=== PATIENT | male | born 1940 | race Caucasian/White ===

== ENCOUNTER 2017-08-02 10:03 | Outpatient (CLI) | payer MEDICARE ==
[~2017-08-02] VITALS: Ht 175.3 cm; Wt 97.7 kg
--- NOTE | ~2017-08-02 | HEMODYNAMI ---
PATIENT:ALMA SORIA JR MEDICAL RECORD: [id number] : 36 LOCATION:[facility] ADMISSION DATE: 08/02/17 Generatedon:08/08/201710:30 Patient name: ALMA SORIA Patient #: [id number] SSN: D OB: 1940 Date of study: 08/02/2017 Page: Of Hemodynamic Procedure Report Patient Data Patient Demographics Procedure consent was obtained First Name: ALMA Gender: Male Last Name: YANG Suffix: Jr Harrison Initial: JOHN : 1940 Patient #: [id number] Age: 76 year(s) Race: Unknown Additional ID: [id number] Contact details Address: [address] [place] [address] State: [place] City: [place] Zip code: [address] Past Medical History Allergies: No known allergies Admission Admission Data Admission Date: 08/02/2017 Admission Time: 10:03 Height (in.): 5.9 BSA: 0.36 (m2) Height (cm.): 14.99 BMI: 4403.02 (kg/m2) Weight (lbs.): 218 Weight (kg.): 98.88 Lab Results Lab Result Date: 08/02/2017 Lab Result Time: 0:00 Biochemistry Name Units Result Min Max BUN mg/dl 20 --(----)*- 7 18 Creatinine mg/dl 0.9 --(-*--)-- 0.6 1.3 CBC Name Units Result Min Max Hemoglobin g/dl 13.7 --(*---)-- 13.5 17.5 Procedure Procedure Types Cath Procedure Diagnostic Procedure [facility] w/Coronaries PCI Procedure Coronary Stent Coronary Stent Initial Coronary Stent Additional Miscellaneous Procedures Moderate Sedation up to 45 minutes Procedure Description Procedure Date Procedure Date: 08/02/2017 Procedure Start Time: 13:55 Procedure End Time: 14:29 Procedure Staff Name Function Praful Alvarez RN Nurse Josiah Neff MD Performing Physician Washington Luna RT Monitor Reena Smith RT Scrub Layne Boland RT Monitor Procedure Data Cath Procedure Fluoroscopy Diagnostic fluoroscopy Total fluoroscopy Time: 14 time: 14 min min Diagnostic fluoroscopy Total fluoroscopy dose: dose: 02198.4 mGy 71517.4 mGy Contrast Material Contrast Material Type Amount (ml) Isovue 300 156 Entry Location Entry Primary Successful Side Size Upsize Upsize Entry Closure Succes sful Closure Location (Fr) 1 (Fr) 2 (Fr) Remarks Device Remarks Femoral Right 5 Fr 6 Fr Exoseal artery Short Estimated blood loss: 10 ml Diagnostic catheters Device Type Used For End Catheter Placement MULTIPACK Pigtail 5 Fr Procedure catheter MULTIPACK JL 4.0 5Fr Procedure catheter DIAGNOSTIC JL 6 5Fr Procedure catheter ([id number]) DIAGNOSTIC JL 5 5Fr Procedure catheter ([id number]) MULTIPACK 3DRC 5Fr Procedure catheter Procedure Complications No complications Procedure Medications Medication Administration Route Dosage Oxygen NC 2 l/min Lidocaine 2% added to field 20 Heparin Flush Bag added to field 2 bags (1000units/500ml NS) 0.9% NaCl I.V. 100 ml/hr Versed I.V. 1 mg Fentanyl I.V. 50 mcg Heparin Bolus I.V. 4000 units Hemodynamics Rest BSA: 0.36 (m2) HGB: 13.7 (g/dl) O2 Consumption: Estimated: 40.81 (ml/min) O2 Con sumption indexed: Estimated:113.36 (ml/min/m) Heart Rate: 67 (bpm) Snapshots Pre Cath Intra NCS Post Cath Vital Signs Time Heart Resp SPO2 etCO2 NIBP (mmHg) Rhythm Pain Sedation Rate (ipm) (%) (mmHg) Status Level (bpm) 13:45:17 70 18 97 0 168/90(129) NSR 0 (11) 10(A) , No pain 13:49:51 66 20 96 27.1 165/85(143) NSR 0 (11) 10(A) , No pain 13:54:18 65 20 96 15.8 150/75(131) NSR 0 (11) 9(A) , No pain 13:58:46 65 18 95 26.3 158/80(132) NSR 0 (11) 9(A) , No pain 14:03:19 63 13 95 0 169/78(132) NSR 0 (11) 9(A) , No pain 14:08:46 66 17 95 25.6 154/75(137) NSR 0 (11) 9(A) , No pain 14:13:15 71 19 93 27.1 153/73(123) NSR 0 (11) 9(A) , No pain 14:17:41 69 18 93 26.3 148/86(134) NSR 0 (11) 9(A) , No pain 14:22:11 66 18 97 0 162/74(134) NSR 0 (11) 9(A) , No pain 14:26:35 73 25 96 0.7 160/87(140) NSR 0 (11) 10(A) , No pain Medications Time Medication Route Dose Verified Delivered Reason Notes Effectiveness by by 13:49:58 Oxygen NC 2 Josiah Barronie used for l/min Tawanda Alvarez RN procedure 13:50:06 Lidocaine 2% added 20ml Josiah Josiah for local to vial Tawanda Neff MD anesthetic field 13:50:12 Heparin Flush added 2 Josiah Josiah used for Bag to bags Tawadna Neff MD procedure (1000units/500ml field NS) 13:50:20 0.9% NaCl I.V. 100 Josiah Basilio Per physician ml/hr Tawanda Alvarez RN 13:50:31 Versed I.V. 1 mg Josiah Basilio for sedation Tawanda Alvarez RN 13:50:37 Fentanyl I.V. 50 Josiah Barronie for sedation mcg Tawanda Alvarez RN 14:06:03 Heparin Bolus I.V. 4000 Josiah Basilio for verifi ed units Tawanda Alvarez RN anticoagulation with dr neff Procedure Log Time Note 13:34:23 Praful Alvarez RN sent for patient. Start room use. 13:34:25 Time tracking: Regular hours 13:34:29 Plan of Care:Hemodynamics will remain stable., Cardiac rhythm will remain stable., Comfort level will be maintained., Respiratory function will remain adequate., Patient/ family verbilizes understanding of procedure., Procedure tolerated without complication., Recovers from procedure without complications.. 13:34:49 Patient Height : 5.9 inches 13:34:53 Patient Weight : 218 lbs 13:35:11 Patient allergic to No known allergies 13:37:05 Signed procedure consent form obtained from patient. 13:37:24 Lab Result : Hemoglobin 13.7 g/dl 13:37:24 Lab Result : Creatinine 0.9 mg/dl 13:37:24 Lab Result : BUN 20 mg/dl 13:37:28 Lab results completed and on chart. 13:38:43 Patient received from Pre/Post Procedure Room to CCL 3 Alert and oriented. Tansferred to table in Supine position. 13:38:44 Warm blankets applied, and stef hugger turned on for patient comfort. 13:38:45 Correct patient and procedure confirmed by team. 13:38:47 ECG and BP/O2 sat monitors applied to patient. 13:43:54 Vital chart was started 13:44:17 H&P Date Dictated: 07/29/2017 Within 30 days and on chart., H&P Addendum completed by physician on day of procedure. (MUST COMPLETE FOR ALL OUTPATIENTS). 13:44:55 Baseline sample Acquired. 13:46:10 Rhythm: sinus rhythm 13:46:34 Pre-procedure instructions explained to patient. 13:46:35 Pre-op teaching completed and patient verbalized understanding. 13:46:37 Family in patients room. 13:46:38 Patient NPO since Midnight. 13:46:51 Is the patient allergic to Iodine/contrast media? No. 13:46:52 Is patient on blood thinner?Yes 13:46:54 ACC The patient was administered the following blood thiners within the last 24 hours: ACCPlavix 13:46:57 Patient diabetic? No. 13:47:00 Previous problem with sedation/anesthesia? No ? 13:47:01 Snore? Yes 13:47:02 Deviated septum? No 13:47:02 Sleep apnea? No 13:47:03 Opens mouth fully? Yes 13:47:04 Sticks out tongue? Yes 13:47:05 Airway obstruction? No ? 13:47:08 Dentures? Yes In tight 13:47:12 Pre procedure: right dorsailis pedis pulse 2+ Normal; easily identifiable; not easily obliterated 13:47:13 Patient pain scale 0/10 ?. 13:47:35 IV patent on arrival in right forearm with 0.9% NaCl at [facility]. 13:47:39 Right groin area was prepped with chlora-prep and draped in sterile fashion 13:47:40 Sharps counted by scrub and verified by R.N. 13:47:40 Alarms reviewed by R. N. 13:47:42 Use device set Femoral Dx 13:47:45 ACIST Syringe (46766) opened to sterile field. 13:47:46 Medline Cath Pack ([id number]) opened to sterile field. 13:47:46 Bag Decanter (2002S) opened to sterile field. 13:47:48 ACIST Manifold (84294) opened to sterile field. 13:47:48 ACIST Hand Control (96287) opened to sterile field. 13:47:49 Tegaderm 4 x 4 (1626W) opened to sterile field. 13:47:51 PERCUTANEOUS ENTRY 19GA needle opened to sterile field. 13:47:52 DIAGNOSTIC WIRE .035 260cm J wire (487669) opened to sterile field. 13:47:53 SHEATH 5FR [place] (QPE340) opened to sterile field. 13:47:55 DIAGNOSTIC Multipack 5Fr catheter set (IA7029) opened to sterile field. 13:49:16 Baseline sample Acquired. 13:49:26 Physician arrived 13:49:27 Final Timeout: patient, procedure, and site verified with staff and physician. All members of the team are in agreement. 13:49:27 --------ALL STOP TIME OUT------ 13:49:29 Right groin site verified by team. 13:49:32 Physical assessment completed. ASA score P 2 - A patient with mild systemic disease as per Josiah Neff MD. 13:49:35 Sedation plan: IV Moderate Sedation Medication:Versed, Fentanyl 13:49:58 Oxygen 2 l/min NC was administered by Praful Alvarez RN; used for procedure; 13:50:06 Lidocaine 2% 20ml vial added to field was administered by Josiah Neff MD; for local anesthetic; 13:50:12 Heparin Flush Bag (1000units/500ml NS) 2 bags added to field was administered by Josiah Neff MD; used for procedure; 13:50:20 0.9% NaCl 100 ml/hr I.V. was administered by Praful Alvarez RN; Per physician; 13:50:31 Versed 1 mg I.V. was administered by Parful Alvarez RN; for sedation; 13:50:37 Fentanyl 50 mcg I.V. was administered by Praful Alvarez RN; for sedation; 13:51:46 Zero performed for pressure channel P1 13:55:46 Procedure started. 13:55:47 Full Disclosure recording started 13:55:51 Local anesthetic to right femoral artery with Lidocaine 2% by Josiah Neff MD.INITIAL ACCESS ONLY 13:56:03 A 5 Fr sheath was inserted into the Right Femoral artery 13:56:28 A MULTIPACK Pigtail 5 Fr catheter was advanced over the wire and used for Procedure. 13:58:37 catheter removed, unable to cross valve. 13:58:44 A MULTIPACK JL 4.0 5Fr catheter was advanced over the wire and used for Procedure. 13:59:24 Catheter removed. unable to cannulate vessel. 13:59:48 A DIAGNOSTIC JL 6 5Fr catheter ([id number]) was advanced over the wire and used for Procedure. 13:59:55 Catheter removed. unable to cannulate vessel. 14:00:01 A DIAGNOSTIC JL 5 5Fr catheter (702778M) was advanced over the wire and used for Procedure. 14:01:07 LCA angiography performed. 14:02:17 SHEATH 6FR [place] (GQH156) opened to sterile field. 14:02:18 INFLATOR Merit BasixCompak (OC3912) opened to sterile field. 14:02:25 Catheter exchanged over wire. 14:02:29 A MULTIPACK 3DRC 5Fr catheter was advanced over the wire and used for Procedure. 14:02:37 EXOSEAL 6Fr (EX600) opened to sterile field. 14:03:18 CHOICE PT Extra Support 182cm wire ([id number]) opened to sterile field. 14:05:14 Catheter removed. 14:05:21 Sheath upsized to a 6 Fr Short. 14:06:03 Heparin Bolus 4000 units I.V. was administered by Praful Alvarez RN; for anticoagulation; verified with dr neff 14:06:41 GUIDE 6FR Q 4.5 catheter ([id number]) opened to sterile field. 14:06:50 6 Fr Q 4.5 guide catheter was inserted over the wire 14:06:54 choice pt wire advanced. 14:08:27 Wire removed. 14:08:39 GRAPHIX 300cm 0.014 guide wire ([id number]) opened to sterile field. 14:08:47 graphix wire advanced. 14:08:51 Wire advanced across lesion. 14:09:20 Inflation Number: 1 A GREY OTW 3.5 x 12 stent ([id number]) was prepped and advanced across the Prox LAD. The stent was deployed at 15 JUAN CARLOS for 0:10 (min:sec). 14:09:32 Inflation number: 2 The stent balloon was then re-inflated across the Prox LAD to 17 JUAN CARLOS for 0:10 (min:sec). 14:10:36 Wire redirected to cx. 14:13:45 Wire removed. damaged. 14:13:53 WHISPER 300cm guide wire ([id number]) opened to sterile field. 14:13:57 whisper wire advanced. 14:20:22 Wire advanced across lesion. 14:22:10 Inflation Number: 1 A GREY OTW 2.5 x 18 stent ([id number]) was prepped and advanced across the 1st Ob Jovita. The stent was deployed at 13 JUAN CARLOS for 0:10 (min:sec). 14:23:20 Stent catheter was removed intact over wire. 14:23:21 Guide catheter removed. 14:23:21 Wire removed. 14:24:09 Sheath removed intact; hemostasis achieved with Exoseal to the Right Femoral artery. 14:24:12 Procedure ended.(Physican Out) 14:25:24 Fluoroscopy time 14.00 minutes. 14:25:50 Fluoroscopy dose: 12476.4 mGy 14:25:50 08/08/17 1029 Fluoro Dose incorrect. (See Below) Scounts RT(R) 14:25:50 Flurop Dose total: 63767.4 14:25:56 Contrast amount:Isovue 300 156ml. 14:25:59 Sharps counted by scrub and verified by R.N. 14:26:01 Insertion/operative site no bleeding no hematoma. 14:26:04 Post-op/insertion site Right Femoral artery dressed using a 4 x 4 and Tegaderm. 14:26:08 Post right femoral artery:stable, soft, clean and dry 14:26:09 Post Procedure Pulses reassessed and unchanged 14:26:11 Post-procedure physical assessment completed. ASA score P 2 - A patient with mild systemic disease as per Josiah Neff MD. 14:26:15 Post procedure rhythm: unchanged. 14:26:25 Estimated blood loss: 10 ml 14:26:26 Post procedure instruction explained to patient.Patient verbalizes understanding. 14:26:27 Patient needs reinforcement of post procedure teaching. 14:26:41 Procedure type changed to Cath procedure, Diagnostic procedure, LHC, LHC w/Coronaries, PCI procedure, Coronary Stent, Coronary Stent Initial, Coronary Stent Additional, Miscellaneous Procedures, Moderate Sedation up to 45 minutes 14:29:40 Procedure and supply charges have been captured, reviewed, submitted and are correct. 14::42 Procedure Complication : No complications 14::44 See physician's report for complete and final results. 14:29:44 Vital chart was stopped 14:29:48 Report given to Pre/Post Procedure Room. 14:29:50 Patient transfered to Pre/Post Procedure Room with Stretcher. 14:29:52 Full Disclosure recording stopped 14:29:52 Procedure ended. 14:30:31 End room use (Document Last) 10:28:40 Late Entry: Fluoro dose 1115.40mgy. Scounts RT(R) Intervention Summary Intervention Notes Time ActionType Lesion and Equipment Action# Pressure Duration Attributes Used 14:09:20 Place stent Prox LAD GREY OTW 3.5 1 15 00:10 x 12 stent ([id number]) 14:09:32 Reinflate Prox LAD GREY OTW 3.5 2 17 00:10 stent x 12 stent balloon ([id number]) 14:22:10 Place stent 1st Ob Jovita GREY OTW 2.5 1 13 00:10 x 18 stent ([id number]) Device Usage Item Name Manufacture Quantity Catalog Number [facility] Lot# / Charge Number Stock Stock Serial# Code ACIST Syringe Acist 1 66093 272005 349967 697968 20 (16161) Medical Systems Inc Bag Decanter Microtek 1 500914 07542 943682 5 () Medical Inc. Medline Cath Cardinal 1 [id number] 521876 66072 023106 5 Pack Health ([id number]) ACIST Hand Acist 1 13930 921076 855393 592703 5 Control Medical (86249) Systems Inc ACIST Acist 1 77549 942542 488024 034424 5 Manifold Medical (93668) Systems Inc Tegaderm 4 x 3M 1 1626W 003683 765606 583048 5 4 (1626W) PERCUTANEOUS [place] Medical 1 P04113 071979 592771 5 ENTRY 19GA needle DIAGNOSTIC [address] Thee 1 250336 670706 228696 499418 30 WIRE .035 260cm J wire (920376) SHEATH 5FR Terumo 1 EXZ656 180378 391257 742444 40 [place] (YPT603) DIAGNOSTIC Cardinal 1 PJ1272 047499 17896 983839 30 Multipack 5Fr Health catheter set (TK3315) MULTIPACK Cardinal 1 358133 5 Pigtail 5 Fr Health catheter MULTIPACK JL Cardinal 1 816736 5 4.0 5Fr Health catheter DIAGNOSTIC JL Cardinal 1 [id number] 762036 247298 022991 5 6 5Fr Health catheter (646884U) DIAGNOSTIC JL Cardinal 1 [id number] 063903 921024 960598 5 5 5Fr Health catheter (870831S) SHEATH 6FR Terumo 1 RFS975 852405 114265 517081 40 [place] (RAC600) INFLATOR [facility] 1 HB2179 677685 237625 565604 15 [facility] BasixCompak (GP1875) MULTIPACK Cardinal 1 066197 5 3DRC 5Fr Health catheter EXOSEAL 6Fr Cardinal 1 EX600 554112 087075 166040 10 (EX600) Health CHOICE PT Warner 1 [id number] 396017 870392 878081 5 Extra Support Scientific 182cm wire (8206211D9) GUIDE 6FR Q Warner 1 [id number] 464699 476959 440592 1 4.5 catheter Scientific (924082247) GRAPHIX 300cm Warner 1 [id number] 968816 803044 111674 5 0.014 guide Scientific wire (0603998M3) GREY OTW 3.5 Medtronic 1 [id number] 681460 1170251 171202 5 [id number] x 12 stent ([id number]) WHISPER 300cm [place] 1 [id number] 509458 327610 949840 5 guide wire Vascular (8535070BK) GREY OTW 2.5 Medtronic 1 [id number] 190789 96220 347745 5 [id number] x 18 stent ([id number]) Signature Audit [place] Stage Time Signature Unsigned Intra-Procedure 08/02/2017 Washington Tillman Counts 2:31:46 PM RT(R) RT(R) 08/08/2017 10:27:56 AM Intra-Procedure 08/08/2017 Layne 10:30:25 AM Counts RT(R) Signatures Monitor : Washington Luna RT Signature : Date : Time : Monitor : Layne Signature : Counts RT Date : Time : [address] [place] [address]
--- NOTE | ~2017-08-02 | OP ---
PATIENT NAME: ALMA SORIA JR MEDICAL RECORD: [id number] :38 LOCATION:D.CAT ADMISSION DATE: SURGEON: ANGIE PARKS MD DATE OF OPERATION: 08/02/2017 PROCEDURES: 1. PTCA stent LAD. 2. PTCA stent left circumflex. 3. Left heart catheterization. 4. Selective coronary angiography. INDICATION: Angina, coronary artery disease, and cardiomyopathy. PROCEDURE IN DETAIL: After informed consent was obtained and after a detailed explanation of risks, benefits as well as alternative therapies, the patient elected to proceed with angiogram and angioplasty. The right femoral area was prepped and draped in normal sterile fashion. The right femoral artery was cannulated via modified Seldinger technique with placement of a 6-Khmer sheath. All catheters exchanged through this sheath. FINDINGS: Left ventriculogram not performed secondary to inability to cross the valve. SELECTIVE CORONARY ANGIOGRAPHY: 1. Left main is with no significant angiographic disease. 2. Left anterior descending has 80% stenosis that is in-stent restenosis proximally, otherwise only mild irregularities. 3. Left circumflex has 80% stenosis in the mid vessel, otherwise only moderate irregularities. 4. The right coronary has previously placed stents, these are widely patent with no significant restenosis. No disease elsewise. PTCA STENT OF THE LAD AND CIRCUMFLEX: The LAD was addressed with a 3.5 x 12 and the circumflex with a 2.5 x 18, both Ander stents. Result was 0% residual stenosis. OVERALL IMPRESSION: Successful percutaneous transluminal coronary angioplasty stent of the left anterior descending and circumflex, both going from 80% initial stenosis to 0% residual. TRANSINT:[id number] Voice Confirmation ID: [id number] DOCUMENT ID: [id number] ANGIE PARKS MD at 1759 CC: [id number] DICTATION DATE: 08/02/17 1431 NUCLEAR REACTOR OPERATOR: 08/02/17 1455 [facility] CLI 08/02/[address] [address]
[2017-08-02] MEDS ORDERED: PLAVIX75 MG PO (11:19)
[2017-08-02] MEDS ORDERED: FUROSEMIDE40 MG PO (11:19)
[2017-08-02] MEDS ORDERED: COREG 3.1253.125 MG PO (11:19)
[2017-08-02] MEDS ORDERED: K-TAB10 MEQ PO (11:20)
[2017-08-02] MEDS ORDERED: BAYER CHEWABLE81 MG PO (11:20)
[2017-08-02] MEDS ORDERED: COZAAR100 MG PO (11:20)
[2017-08-02 11:40] VITALS: BP 171/79; Ht 175.3 cm; Wt 97.7 kg
[2017-08-02 11:47] LABS: BASOPHILS 0.4 % (0-2); EOSINOPHILS 2.8 % (0-7); HEMATOCRIT 41.5 % (42.0-54.0); HEMOGLOBIN 13.7 g/dL (13.5-17.5); IMMATURE GRANULOCYTES 0.4 % (0-5); LYMPHOCYTES 19.1 % (15-50); MCH 30.9 pg (26.0-34.0); MCV 93.5 fL (80.0-100.0); MEAN PLATELET VOLUME 10.1 fL (7.4-10.4); MONOCYTES 9.5 % (2-11); NEUTROPHILS 67.8 % (40-80); PLATELET COUNT 101 10x3/uL (130-400); RBC 4.44 10x6/uL (4.20-6.10); RDW 14.7 % (11.5-14.5); WBC 4.7 10x3/uL (4.8-10.8)
[2017-08-02 12:02] LABS: CALC OSMOLALITY 291 mosm/kg (275-300); CARBON DIOXIDE 29.5 mmol/L (21.0-32.0); CHLORIDE - SERUM 106 mmol/L (98-107); CREATININE - SERUM 0.9 mg/dL (0.6-1.3); GLUCOSE 105 mg/dL (74-106); SODIUM 145 mmol/L (136-145); UREA NITROGEN 20 mg/dL (7-18); eGFR NON AFRICAN AMERICAN 87 mL/min (90-120)
== END 2017-08-02 18:25 | disposition home or self-care (01) ==
LOC: D.CATH 10:03
PROVIDERS: Internal Medicine Interventional Cardiology
DX: I25.10 Atherosclerotic heart disease of native coronary artery without angina pectoris (principal); R55 Syncope and collapse; I42.9 Cardiomyopathy, unspecified; Z01.812 Encounter for preprocedural laboratory examination
CPT/HCPCS: 93458; C9600 ×2

== ENCOUNTER → 2017-09-11 16:27 | Outpatient (CLI) | payer MEDICARE ==
[2017-08-02 11:40] VITALS: BMI 31.8
[~2017-09-11 16:27] MED LIST: BAYER CHEWABLE81 MG PO; COREG 3.1253.125 MG PO; COZAAR100 MG PO; FUROSEMIDE40 MG PO; K-TAB10 MEQ PO; PLAVIX75 MG PO
[2017-09-11 18:55] LABS: CALC OSMOLALITY 286 mosm/kg (275-300); CARBON DIOXIDE 27.5 mmol/L (21.0-32.0); CHLORIDE - SERUM 104 mmol/L (98-107); CREATININE - SERUM 0.9 mg/dL (0.6-1.3); GLUCOSE 88 mg/dL (74-106); POTASSIUM - SERUM 3.8 mmol/L (3.5-5.1); SODIUM 143 mmol/L (136-145); UREA NITROGEN 21 mg/dL (7-18); eGFR NON AFRICAN AMERICAN 87 mL/min (90-120)
== END | disposition home or self-care (01) ==
LOC: D.LABREF 16:27
PROVIDERS: Internal Medicine Interventional Cardiology
DX: I42.9 Cardiomyopathy, unspecified (principal)

== ENCOUNTER 2018-07-31 21:11 | Observation (INO) | payer MEDICARE ==
[~2018-07-31] VITALS: Ht 175.3 cm; Wt 99.8 kg
--- NOTE | ~2018-07-31 | HEMODYNAMI ---
PATIENT:ALMA SORIA JR MEDICAL RECORD: [id number] : 36 [id number] ADMISSION DATE: 07/31/18 Generatedon:08/01/201810:48 Patient name: ALMA SORIA Patient #: [id number] SSN: D OB: 1940 Date of study: 08/01/2018 Page: Of Hemodynamic Procedure Report Patient Data Patient Demographics Procedure consent was obtained First Name: ALMA Gender: Male Last Name: YANG Suffix: [facility] Initial: JOHN : 1940 Patient #: [id number] Age: 77 year(s) Race: Unknown Additional ID: [id number] Contact details [address]: [address] [place] [address] State: [place] City: [place] Zip code: [address] Past Medical History Allergies: No known allergies Admission Admission Data Admission Date: 07/31/2018 Admission Time: 23:06 Room #: D.2124 Weight (lbs.): 220.46 Weight (kg.): 100 Lab Results Lab Result Date: 08/01/2018 Lab Result Time: 0:00 Biochemistry Name Units Result Min Max BUN mg/dl 21 --(----)-* 7 18 Creatinine mg/dl 0.9 --(-*--)-- 0.6 1.3 CBC Name Units Result Min Max Hemoglobin g/dl 14.8 --(-*--)-- 13.5 17.5 Procedure Procedure Types Cath Procedure Diagnostic Procedure C [facility] w/Coronaries PCI Procedure Coronary Stent Coronary Stent Initial Procedure Description Procedure Date Procedure Date: 08/01/2018 Procedure Start Time: 10:18 Procedure End Time: 10:45 Procedure Staff Name Function Josiah Neff MD Performing Physician Claudia Anthony RN Nurse Kenney Gauthier RT Monitor Satya Rudd RT Scrub Procedure Data Cath Procedure Fluoroscopy Diagnostic fluoroscopy Total fluoroscopy Time: 9 time: 9 min min Diagnostic fluoroscopy Total fluoroscopy dose: 738 dose: 738 mGy mGy Contrast Material Contrast Material Type Amount (ml) Isovue 300 191 Entry Location Entry Primary Successful Side Size Upsize Upsize Entry Closure Succes sful Closure Location (Fr) 1 (Fr) 2 (Fr) Remarks Device Remarks Femoral Right 5 Fr 6 Fr Exoseal artery Short Estimated blood loss: 10 ml Diagnostic catheters Device Type Used For End Catheter Placement MULTIPACK Pigtail 5 Fr Procedure catheter MULTIPACK JL 4.0 5Fr Procedure catheter MULTIPACK 3DRC 5Fr Procedure catheter Procedure Complications No complications Procedure Medications Medication Administration Route Dosage 0.9% NaCl I.V. 100 ml/hr Oxygen etCO2 Nasal cannula 2 l/min Lidocaine 2% added to field 20 Heparin Flush Bag added to field 2 bags (1000units/500ml NS) Versed I.V. 2 mg Fentanyl I.V. 50 mcg Versed I.V. 1 mg Fentanyl I.V. 50 mcg Heparin Bolus I.V. 4000 units Integrilin (Bolus I.V. 9 ml 2mg/ml) Hemodynamics Rest Heart Rate: 63 (bpm) Pressure Samples Time Site Value (mmHg) Purpose Heart Use Rate(bpm) 10:24 AO 145/70(99) Snapshot 60 Snapshots Pre Cath Intra NCS Post Cath Vital Signs Time Heart Resp SPO2 etCO2 NIBP (mmHg) Rhythm Pain Sedation Rate (ipm) (%) (mmHg) Status Level (bpm) 9:56:50 68 22 97 15 155/79(119) NSR 0 (11) 10(A) , No pain 10:01:28 62 23 98 15 143/71(125) NSR 0 (11) 10(A) , No pain 10:06:01 74 23 97 22.2 147/72(103) NSR 0 (11) 10(A) , No pain 10:11:33 72 25 97 25 142/83(94) NSR 0 (11) 10(A) , No pain 10:16:05 69 26 98 28.6 154/64(116) NSR 0 (11) 10(A) , No pain 10:20:44 66 26 98 21.5 147/75(125) NSR 0 (11) 10(A) , No pain 10:25:20 64 15 97 23.6 143/68(115) NSR 0 (11) 9(A) , No pain 10:29:49 70 11 98 22.8 151/80(117) NSR 0 (11) 9(A) , No pain 10:34:19 74 12 98 24 158/81(127) NSR 0 (11) 9(A) , No pain 10:38:47 76 13 97 25 153/75(123) NSR 0 (11) 9(A) , No pain 10:43:22 72 15 94 0 158/78(118) NSR 0 (11) 10(A) , No pain Medications Time Medication Route Dose Verified Delivered Reason Notes Effectiveness by by 9:55:30 0.9% NaCl I.V. 100 Josiah Claudia used for ml/hr Tawanda Anthony panel assembler 9:55:39 Oxygen etCO2 2 Josiah Claudia used for Nasal l/min Tawanda Anthony procedure cannula RN 9:55:45 Lidocaine 2% added 20ml Josiah Josiah for local to vial Tawanda Neff MD anesthetic field 9:55:50 Heparin Flush added 2 Josiah Josiah used for Bag to bags Tawanda Neff MD procedure (1000units/500ml field NS) 10:18:24 Versed I.V. 2 mg Josiah Claudia for sedation Tawanda Anthony RN 10:19:28 Fentanyl I.V. 50 Josiah Claudia for sedation mcg Tawanda Anthony RN 10:24:24 Versed I.V. 1 mg Josiah Claudia for sedation Tawanda Anthony RN 10:24:30 Fentanyl I.V. 50 Josiah Claudia for sedation mcg Tawanda Anthony RN 10:29:13 Heparin Bolus I.V. 4000 Josiah Claudia for verif ied units Tawanda Anthony anticoagulation with Dr. ELEANOR Neff 10:29:34 Integrilin I.V. 9 ml Josiah Claudia for waste d (Bolus 2mg/ml) Tawanda Anthony anticoagulation 1mL practice lead Log Time Note 9:30:15 Kenney Gauthier RT(R) sent for patient. Start room use. 9:30:16 Time tracking: Regular hours (M-F 7:00 - 5:00) 9:30:22 Plan of Care:Hemodynamics will remain stable., Cardiac rhythm will remain stable., Comfort level will be maintained., Respiratory function will remain adequate., Patient/ family verbilizes understanding of procedure., Procedure tolerated without complication., Recovers from procedure without complications.. 9:47:02 Patient received from Med II to CCL 3 Alert and oriented. Tansferred to table in Supine position. 9:47:03 Warm blankets applied, and stef hugger turned on for patient comfort. 9:47:03 Correct patient and procedure confirmed by team. 9:47:05 Signed procedure consent form obtained from patient. 9:47:05 ECG and BP/O2 sat monitors applied to patient. 9:55:20 Vital chart was started 9:55:30 0.9% NaCl 100 ml/hr I.V. was administered by Claudia Anthony RN; used for procedure; 9:55:39 Oxygen 2 l/min etCO2 Nasal cannula was administered by Claudia Anthony RN; used for procedure; 9:55:45 Lidocaine 2% 20ml vial added to field was administered by Josiah Neff MD; for local anesthetic; 9:55:50 Heparin Flush Bag (1000units/500ml NS) 2 bags added to field was administered by Josiah Neff MD; used for procedure; 10:07:53 Baseline sample Acquired. 10:08:01 Rhythm: sinus rhythm 10:08:08 Full Disclosure recording started 10:08:16 H&P Date Dictated: 07/31/2018 Within 30 days and on chart.. 10:08:17 Pre-procedure instructions explained to patient. 10:08:17 Pre-op teaching completed and patient verbalized understanding. 10:08:20 Family in patients room. 10:08:30 Patient NPO since Midnight. 10:08:32 Is the patient allergic to Iodine/contrast media? No. 10:08:33 Is patient on blood thinner?Yes 10:08:35 ACC The patient was administered the following blood thiners within the last 24 hours: ACCPlavix 10:08:44 PLAVIX LOADED. 10:08:46 Patient diabetic? No. 10:08:48 Previous problem with sedation/anesthesia? No ? 10:08:49 Snore? Yes 10:08:50 Sleep apnea? No 10:08:51 Deviated septum? No 10:08:52 Opens mouth fully? Yes 10:08:52 Sticks out tongue? Yes 10:08:54 Airway obstruction? No ? 10:08:56 Dentures? Yes IN 10:09:06 Pre procedure: right dorsailis pedis pulse 1+ Palpable, but thready & weak; easily obliterated 10:09:09 Patient pain scale 0/10 ?. 10:09:13 IV patent on arrival in left forearm with 0.9% NaCl at O. 10:09:15 Lab results completed and on chart. 10:09:17 Right groin area was prepped with chlora-prep and draped in sterile fashion 10:09:18 Alarms reviewed by R. N. 10:09:18 Sharps counted by scrub and verified by R.N. 10:09:21 Use device set Femoral Dx 10:09:24 Tegaderm 4 x 4 (1626W) opened to sterile field. 10:09:24 ACIST Manifold (79111) opened to sterile field. 10:09:25 ACIST Hand Control (44053) opened to sterile field. 10:09:26 ACIST Syringe (66141) opened to sterile field. 10:09:26 Bag Decanter (2002S) opened to sterile field. 10:09:27 Medline Cath Pack ([id number]) opened to sterile field. 10:09:27 DIAGNOSTIC WIRE .035 260cm J wire (283225) opened to sterile field. 10:09:29 DIAGNOSTIC Multipack 5Fr catheter set (LB3360) opened to sterile field. 10:09:31 SHEATH 5FR [place] (CAL394) opened to sterile field. 10:17:55 --------ALL STOP TIME OUT------ 10:17:55 Final Timeout: patient, procedure, and site verified with staff and physician. All members of the team are in agreement. 10:17:57 Right groin site verified by team. 10:18:00 Physical assessment completed. ASA score P 2 - A patient with mild systemic disease as per Josiah Neff MD. 10:18:03 Sedation plan: IV Moderate Sedation Medication:Versed, Fentanyl 10:18:22 Procedure started. 10:18:24 Versed 2 mg I.V. was administered by Claudia Anthony RN; for sedation; 10:18:26 Local anesthetic to right femoral artery with Lidocaine 2% by Josiah Neff MD.INITIAL ACCESS ONLY 10:19:28 Fentanyl 50 mcg I.V. was administered by Claudia Anthony RN; for sedation; 10:19:56 A 5 Fr sheath was inserted into the Right Femoral artery 10:20:01 Zero performed for pressure channel P1 10:20:04 Zero performed for pressure channel P1 10:20:16 A MULTIPACK Pigtail 5 Fr catheter was advanced over the wire and used for Procedure. 10:20:50 Lab Result : Hemoglobin 14.8 g/dl 10::50 Lab Result : Creatinine 0.9 mg/dl 10::50 Lab Result : BUN 21 mg/dl 10::53 Patient Weight : 220.46 lbs 10:23:55 LV angiography performed. 10:23:56 LV gram done using CISNEROS 10:24:02 EF : 30 % 10:24:07 Injector settings: Ml/sec: 7, Volume: 15, 10:24:08 Catheter removed. 10:24:18 A MULTIPACK JL 4.0 5Fr catheter was advanced over the wire and used for Procedure. 10:24:24 Versed 1 mg I.V. was administered by Claudia Anthony RN; for sedation; 10:24:30 Fentanyl 50 mcg I.V. was administered by Claudia Anthony RN; for sedation; 10:24:33 LCA angiography performed. 10:25:23 Catheter removed. 10:25:28 A MULTIPACK 3DRC 5Fr catheter was advanced over the wire and used for Procedure. 10:25:31 Use device set TAWANDA PCI 10:27:40 RCA angiography performed. 10:27:58 Catheter removed. 10:28:01 SHEATH 6FR [place] (LJW133) opened to sterile field. 10:28:17 INFLATOR Merit BasixCompak (EI7890) opened to sterile field. 10:28:20 CHOICE PT Extra Support 182cm wire ([id number]) opened to sterile field. 10:28:21 GUIDE 6FR XBLAD 3.5 catheter ([id number]) opened to sterile field. 10:28:32 Sheath upsized to a 6 Fr Short. 10:29:01 SHEATH DAMAGED, EXCHANGED FOR NEW 6FR SHEATH. 10:29:13 Heparin Bolus 4000 units I.V. was administered by Claudia Anthony RN; for anticoagulation; verified with Dr. Neff 10:29:14 SHEATH 6FR [place] (SAW367) opened to sterile field. 10:29:34 Integrilin (Bolus 2mg/ml) 9 ml I.V. was administered by Claudia Anthony RN; for anticoagulation; wasted 1mL 10:29:35 6 Fr XBLAD 3.5 guide catheter was inserted over the wire 10:29:46 CPTXS wire advanced. 10:33:56 Wire advanced down the DIAG. 10:35:51 Inflate balloon Inflation number: 1 A EUPHORA 1.5 x 12 balloon ([id number]) was prepped and advanced across the 1st Diag, then inflated to 21 JUAN CARLOS for 0:10 (min:sec). 10:36:12 Multiple inflations made at 21 atms. 10:36:21 Balloon removed over the wire. 10:38:38 Inflate balloon Inflation number: 2 A EUPHORA 2.5 x 12 Balloon ([id number]) was prepped and advanced across the 1st Diag, then inflated to 17 JUAN CARLOS for 0:10 (min:sec). 10:39:40 Multiple inflations made at 17 atms. 10:40:18 Balloon removed over the wire. 10:40:28 Place stent Inflation Number: 3 A INTEGRITY RX 2.5 x 08 stent ([id number]) was prepped and advanced across the 1st Diag. The stent was deployed at 17 JUAN CARLOS for 0:10 (min:sec). 10:40:57 Stent catheter was removed intact over wire. 10:40:57 Wire removed. 10:40:58 Guide catheter removed. 10:41:00 EXOSEAL 6Fr (EX600) opened to sterile field. 10:41:12 Sheath removed intact; hemostasis achieved with Exoseal to the Right Femoral artery. 10:41:14 Procedure ended.(Physican Out) 10:41:49 Fluoroscopy time 09.00 minutes. 10:41:53 Fluoroscopy dose: 738 mGy 10:41:53 Flurop Dose total: 738 10:41:57 Contrast amount:Isovue 300 191ml. 10:41:58 Sharps counted by scrub and verified by R.N. 10:41:59 Insertion/operative site no bleeding no hematoma. 10:42:03 Post-op/insertion site Right Femoral artery dressed using a 4 x 4 and Tegaderm. 10:42:04 Post Procedure Pulses reassessed and unchanged 10:42:07 Post-procedure physical assessment completed. ASA score P 2 - A patient with mild systemic disease as per Josiah Neff MD. 10:42:09 Post procedure rhythm: unchanged. 10:42:32 Estimated blood loss: 10 ml 10:42:34 Post procedure instruction explained to patient.Patient verbalizes understanding. 10:42:34 Patient needs reinforcement of post procedure teaching. 10:42:49 Procedure type changed to Cath procedure, Diagnostic procedure, LHC, LHC w/Coronaries, PCI procedure, Coronary Stent, Coronary Stent Initial 10:42:51 Procedure and supply charges have been captured, reviewed, submitted and are correct. 10:42:54 Procedure Complication : No complications 10:45:35 Vital chart was stopped 10:45:35 See physician's report for complete and final results. 10:45:41 Report given to Med II. 10:45:45 Patient transfered to Med II with Bed. 10:45:57 Procedure ended. 10:45:57 Full Disclosure recording stopped 10:46:31 End room use (Document Last) Intervention Summary Intervention Notes Time ActionType Lesion and Equipment Action# Pressure Duration Attributes Used 10:35:51 Inflate 1st Diag EUPHORA 1.5 1 21 00:10 balloon x 12 balloon ([id number]) 10:38:38 Inflate 1st Diag EUPHORA 2.5 2 17 00:10 balloon x 12 Balloon ([id number]) 10:40:28 Place stent 1st Diag INTEGRITY RX 3 17 00:10 2.5 x 08 stent ([id number]) Device Usage Item Name Manufacture Quantity Catalog Number Hospital Part Current [facility] Lot# / Charge Number Stock Stock Serial# Code Tegaderm 4 x 3M 1 1626W [id number] 984224 620121 5 4 (1626W) ACIST Acist 1 66633 483160 306376 014565 5 Manifold Medical (76993) Systems Inc ACIST Hand Acist 1 55097 679898 789270 548592 5 Control Medical (33728) Systems Inc ACIST Acist 1 56829 355550 914136 025511 20 Syringe Medical (92772) Systems Inc Bag Decanter Microtek 1 2001S 816638 92280 066182 5 () Medical Inc. Medline Cath Medline 1 [id number] 268439 92245 791160 5 Pack ([id number]) DIAGNOSTIC St Thee 1 700064 665448 969693 331347 30 WIRE .035 260cm J wire (405031) DIAGNOSTIC Cardinal 1 UU7763 688582 38289 818746 30 Multipack Health 5Fr catheter set (GR5175) SHEATH 5FR Terumo 1 SLN156 111215 832444 433299 5 [place] (QCN348) MULTIPACK Cardinal 1 981333 5 Pigtail 5 Fr Health catheter MULTIPACK JL Cardinal 1 042970 5 4.0 5Fr Health catheter MULTIPACK Cardinal 1 097857 5 3DRC 5Fr Health catheter SHEATH 6FR Terumo 2 RKA155 185784 603068 684270 40 [place] (MUQ481) INFLATOR Merit 1 LM1128 568598 002259 930384 15 [facility] Medical BasixCompak (WG5983) CHOICE PT [place] 1 [id number] 711478 055257 308303 5 Extra Scientific Support 182cm wire ([id number]) GUIDE 6FR Cardinal 1 [id number] 201368 768649 988287 10 XBLAD 3.5 Health catheter (10620751) EUPHORA 1.5 Medtronic 1 [id number] 770486 866628 895745 5 [id number] x 12 balloon ([id number]) EUPHORA 2.5 Medtronic 1 [id number] 407324 734595 770265 5 x 12 Balloon ([id number]) INTEGRITY RX Medtronic 1 [id number] 118896 838891 388949 5 [id number] 2.5 x 08 stent ([id number]) EXOSEAL 6Fr Cardinal 1 EX600 179089 815228 677995 10 (EX600) Health Signature Audit [place] Time Signature Unsigned Intra-Procedure 08/01/2018 Kenney Gauthier 10:48:13 AM RT(R) Signatures Monitor : Kenney Gauthier RT Signature : Date : Time : [facility] [address] [place] [address]
[2018-07-31 21:37] LABS: BASOPHILS 0.2 % (0-2); EOSINOPHILS 3.2 % (0-7); HEMATOCRIT 43.2 % (42.0-54.0); HEMOGLOBIN 14.8 g/dL (13.5-17.5); IMMATURE GRANULOCYTES 0.2 % (0-5); LYMPHOCYTES 26.5 % (15-50); MCH 32.4 pg (26.0-34.0); MCHC 34.3 g/dL (31.0-37.0); MCV 94.5 fL (80.0-100.0); MEAN PLATELET VOLUME 10.4 fL (7.4-10.4); MONOCYTES 5.3 % (2-11); NEUTROPHILS 64.6 % (40-80); PLATELET COUNT 113 10x3/uL (130-400); RBC 4.57 10x6/uL (4.20-6.10); RDW 14.1 % (11.5-14.5); WBC 4.8 10x3/uL (4.8-10.8)
[2018-07-31 21:43] LABS: APTT 28.8 SECONDS (22.8-39.4)
[2018-07-31 21:44] LABS: INR 1.08 (0.85-1.17); PROTIME 13.5 SECONDS (11.6-15.0)
[2018-07-31 21:57] LABS: ALBUMIN 3.3 g/dL (3.4-5.0); ALKALINE PHOSPHATASE 55 U/L (46-116); ALT (SGPT) 19 U/L (10-68); CALC OSMOLALITY 287 mosm/kg (275-300); CALCIUM 8.7 mg/dL (8.5-10.1); CARBON DIOXIDE 26.8 mmol/L (21.0-32.0); CHLORIDE - SERUM 105 mmol/L (98-107); CREATININE - SERUM 0.9 mg/dL (0.6-1.3); GLUCOSE 127 mg/dL (74-106); POTASSIUM - SERUM 3.6 mmol/L (3.5-5.1); PROTEIN - SERUM 6.7 g/dL (6.4-8.2); SODIUM 142 mmol/L (136-145); UREA NITROGEN 21 mg/dL (7-18); eGFR NON AFRICAN AMERICAN 86 mL/min (90-120)
[2018-07-31 22:18] LABS: CKMB 4.1 U/L (0.0-3.6); CREATINE KINASE 120 UL (21-232); PRO BNP 2129 pg/mL (0-450)
[2018-07-31 22:25] LABS: TROPONIN-I 0.156 ng/mL (0.000-0.060)
[2018-07-31 22:33] VITALS: BP 120/67
[2018-08-01] MEDS ORDERED: ENTRESTO 49 MG1 EACH PO (00:23)
[2018-08-01 02:49] VITALS: BP 130/40; BMI 32.5
--- NOTE | 2018-08-01 05:57 | NUR ---
PATIENT RESTING COMFORTABLY IN BED. RESPIRATIONS ARE EVEN AND UNLABORED. DENIES NEEDS. NO S/S OF DISTRESS. NO C/O OF PAIN. CALL LIGHT WITHIN REACH. WILL CPOC.
[2018-08-01 08:39] VITALS: BP 131/62
--- NOTE | 2018-08-01 09:32 | NUR ---
RESTS IN BED WITHOUT NEEDS VOICED. FAMILY AT BS. CALL LIGHT IN REACH.
[2018-08-01 10:32] VITALS: Ht 175.3 cm; Wt 99.8 kg
--- NOTE | 2018-08-01 10:46 | NUR ---
REPORT RECEIVED. WILL CONTINUE WITH POC. PT CURRENTLY LYING SEMI FOWLERS. CALL LIGHT W/I REACH. RR EVEN AND UNLABORED ON 2L 02. L.AC IS SALINE LOCKED. PT IS AAO AND UP AD MIMA. TIP FIXER CALLED TO PREOP. PREOP MEDICATIONS ADMINISTERED ALONG WITH ORDERED DOSE OF PLAVIX. PT DENIES ANY NEEDS. NS INFUSING @KVO VIA L.AC PIV. PT DENIES ANY NEEDS AT THIS TIME. WILL CTM.
[2018-08-01] MEDS ORDERED: PLAVIX75 MG PO (11:17)
--- NOTE | 2018-08-01 11:20 | NUR ---
PATIENT RESTING WITH FAMILY AT BEDSIDE. VSS ON 2L NASAL CANNULA. RIGHT GROIN DRESSING IS CDI, NO S/S OF BLEEDING OR HEMATOMA.
--- NOTE | 2018-08-01 11:41 | NUR ---
PT TAKEN TO [facility] AND WILL BE DISCHARGED FROM THERE.
--- NOTE | 2018-08-01 11:50 | NUR ---
PATIENT RESTING, ECHO FINISHED AT THIS TIME. VSS ON ROOM AIR. RIGHT GROIN DRESSING IS CDI, NO S/S OF BLEEDING OR HEMATOMA. FAMILY AT BEDSIDE.
--- NOTE | 2018-08-01 12:20 | NUR ---
RIGHT GROIN DRESSING IS CDI, NO S/S OF BLEEDING OR HEMATOMA. VSS ON 1L NASAL CANNULA.
--- NOTE | 2018-08-01 12:50 | NUR ---
PATIENT INTERMITTENTLY RESTING. VSS ON ROOM AIR. RIGHT GROIN DRESSING IS CDI, NO S/S OF BLEEDING OR HEMATOMA. TOLERATING PO FLUIDS, NO N/V. NO C/O PAIN, NUMBNESS, OR TINGLING.
--- NOTE | 2018-08-01 13:20 | NUR ---
PATIENT AWAKE, FAMILY AT BEDSIDE. VSS ON ROOM AIR. RIGHT GROIN DRESSING IS CDI,NO S/S OF BLEEDING OR HEMATOMA. HEAD OF BED ELEVATED TO 30 DEGREES.
--- NOTE | 2018-08-01 13:50 | NUR ---
HEAD OF BED ELEVATED TO 60 DEGREES. RIGHT GROIN DRESSING IS CDI, NO S/S OF BLEEDING OR HEMATOMA. ASSISTED PATIENT WITH URINAL. VSS ON ROOM AIR.
--- NOTE | 2018-08-01 14:20 | NUR ---
EDUCATION GIVEN TO PATIENT AND FAMILY MEMBERS REGARDING DISCHARGE INSTRUCTIONS AND MEDICATIONS, ALL QUESTIONS ANSWERED. VSS ON ROOM AIR. RIGHT GROIN DRESSING IS CDI, NO S/S OF BLEEDING OR HEMATOMA. IV REMOVED. PRESCRIPTION FOR PLAVIX CALLED IN TO [facility] PER REQUEST OF PATIENT.
--- NOTE | 2018-08-01 14:40 | NUR ---
PATIENT TRANSPORTED VIA WHEELCHAIR TO CAR WITH FAMILY DRIVING, ALL BELONGINGS WITH PATIENT.
--- NOTE | 2018-08-08 12:11 | DS ---
PATIENT:ALMA PRESCOTT JR :36 MEDICAL RECORD: [id number] DISCHARGE SUMMARY ADMISSION DATE: 07/31/18 DISCHARGE DATE: 08/01/18 DATE OF DISCHARGE: 08/01/2018 DIAGNOSES: 1. Non-Q-wave myocardial infarction. 2. Coronary artery disease. 3. Cardiomyopathy. 4. Previous PTCA and stent. 5. PTCA and stent of LAD diagonal this admission. HOSPITAL COURSE: Mr. Prescott presents with anginal symptomatology, found to have mildly elevated troponin, underwent cardiac catheterization revealing 95% stenosis of a large LAD diagonal, underwent successful PTCA and stent of this. Discharged home to continue his current medications, which include Coreg and Entresto. Added aspirin and Plavix to his medical regimen. Did not add a statin due to statin intolerance in the past. Will follow up with [facility] in 1 month. TRANSINT:[id number] Voice Confirmation ID: [id number] DOCUMENT ID: [id number] ANGIE PARKS MD at 1211 CC: [id number] DICTATION DATE: 08/01/18 1049 RECORD MAKER: 08/01/18 2350 DIS IN 08/01/18 [facility] [address] [place] [address]
--- NOTE | 2018-08-08 12:11 | EC ---
PATIENT:ALMA SORIA JR DATE OF SERVICE: 07/31/18 SEX: M MEDICAL RECORD: [id number] DATE OF : 36 [facility]GE OF PAT[facility]: 77 ADMISSION DATE: 07/31/18 REFERRING PHYSICIAN: INTERPRETING PHYSICIAN: ANGIE NEFF MD ECHOCARDIOGRAM REPORT ECHO CHARGES 4 ECHO COMPLETE Date: 08/01/18 CLINICAL DIAGNOSIS: CHF/POST STENTS/ASSESS HX CAD/LOW EF /STENTS ECHOCARDIOGRAPHIC MEASUREMENTS (adult normal given) AC root (d.<3.7cm) 3.2 cm LV Septum d (<1.2 cm> 1.2 cm Valve Excursion 1.2 cm LV Septum (systole) 1.4 cm Left Atria (s.<4.0cm> 5.3 cm LVPW d(<1.2cm) 1.0 cm RV (d.<2.3cm) 4.1 cm LVPW (sytole) 1.4 cm LV diastole(<5.6CM) 6.7 cm MV E-F(>70mm/sec) cm LV systole 5.6 cm LVOT Diameter 1.8 cm MV exc.(>10mm) 0.9 cm Est.ejection fraction (50-75%) % DOPPLER: LVIT cm/sec A 97.0 cm/sec E 62.0 cm/sec LA cm/sec RVSP 28 mmHg LVOT 113 cm/sec AOP1/2T m/s Asc. Ao 192 cm/sec RVOT cm/sec RA cm/sec PA cm/sec AV Gradient Peak 14.78mmHg AV Mean 8.75 mmHg AV Area 1.2 cm MV Gradient Peak 6.36 mmHg MV Mean 2.94 mmHg MV Area cm COMMENTS: Sleep Manager: Raúl GRANT Spider Assembler: 1 Dr. Neff TAPE# PACS Pericardial Effusion N DATE OF SERVICE: 08/01/2018 ECHOCARDIOGRAM FINDINGS: 1. Left ventricular chamber size is dilated. Left ventricular systolic function is markedly reduced. Overall ejection fraction 25% to 30%. 2. Left atrium is enlarged at 5.3 cm. Right atrium and right ventricular chamber sizes are as well moderately dilated. 3. Valvular structures have normal structure and motion. ECHOCARDIOGRAM REPORT [id number] ALMA SORIA 4. Doppler interrogation reveals moderate aortic insufficiency, mild mitral regurgitation, mild tricuspid regurgitation, no other valvular insufficiency or stenosis. Pulmonary systolic pressure is estimated at 28 mmHg. 5. No evidence of pericardial effusion or left ventricular thrombus. TRANSINT:[id number] Voice Confirmation ID: [id number] DOCUMENT ID: [id number] ANGIE NEFF MD at 1211 CC: [id number] DICTATION DATE: 08/01/18 1509 ATTENDING PHYSICIAN: 08/01/181955 DIS IN 08/01/18 [place] [id number] [place] [id number]
--- NOTE | 2018-08-08 12:11 | OP ---
PATIENT NAME: ALMA SORIA JR MEDICAL RECORD: [id number] :36 [facility] ADMISSION DATE:07/31/18 SURGEON: ANGIE PARKS MD DATE OF OPERATION: 08/01/2018 PROCEDURES: 1. PTCA and stent of LAD diagonal. 2. Left heart catheterization. 3. Selective coronary angiography. 4. Left ventriculogram. INDICATION: Non-Q-wave myocardial infarction, angina, and coronary artery disease. PROCEDURE IN DETAIL: After informed consent was obtained and after detailed explanation of risks, benefits as well as alternative therapies, the patient elected to proceed with angiogram and angioplasty. The right femoral area was prepped and draped in normal sterile fashion. Right femoral artery was cannulated via modified Seldinger technique with placement of 6-Japanese sheath. All catheters exchanged through this sheath. FINDINGS: The left ventriculogram was performed in standard 30-degree CISNEROS view, reveals global hypokinesis throughout all segments. Overall ejection fraction is 30%. SELECTIVE CORONARY ANGIOGRAPHY: 1. Left main is with no significant angiographic disease. 2. Left anterior descending has a previously placed stent. This is widely patent; however, there is a large diagonal system that takes off at the previously placed stent. This is 90% to 95% stenosed. 3. The left circumflex shows mild irregularities, but no flow-limiting stenosis. 4. Right coronary has mild irregularities, but no flow-limiting stenosis. PTCA AND STENT OF THE LAD DIAGONAL: The stent used is a 2.5 x 8-mm Integrity. Result was 0% residual stenosis. OVERALL IMPRESSION: Successful PTCA and stent of the LAD diagonal going from 95% initial stenosis to 0% residual. TRANSINT:[id number] Voice Confirmation ID: [id number] DOCUMENT ID: [id number] ANGIE PARKS MD at 1211 CC: [id number] DICTATION DATE: 08/01/18 1048 STRIP CLEANER: 08/01/18 1104 DIS IN 08/01/18 [facility] [address] [place] [address]
== END 2018-08-01 14:40 | disposition home or self-care (01) ==
LOC: D.ER 21:11 → OBSVTIME 23:06 → D.M2 23:06 → D.ER 23:24 → D.CLR 08-01 10:53
PROVIDERS: Family Medicine; ADMIT Internal Medicine Interventional Cardiology
DX: I21.4 Non-ST elevation (NSTEMI) myocardial infarction (principal); I25.119 Atherosclerotic heart disease of native coronary artery with unspecified angina pectoris; I42.9 Cardiomyopathy, unspecified; I10 Essential (primary) hypertension; K21.9 Gastro-esophageal reflux disease without esophagitis

== ENCOUNTER 2018-09-15 12:37 | Emergency (ER) | payer MEDICARE ==
[~2018-09-15] VITALS: Ht 175.3 cm; Wt 98.9 kg
[~2018-09-15 12:37] MED LIST changes: +ENTRESTO 49 MG1 EACH PO
[2018-09-15 12:45] VITALS: Ht 175.3 cm; Wt 98.9 kg
[2018-09-15 14:04] LABS: BASOPHILS 0 % (0-2); HEMATOCRIT 41.2 % (42.0-54.0); IMMATURE GRANULOCYTES 0.3 % (0-5); LYMPHOCYTES 7.8 % (15-50); MCH 31.9 pg (26.0-34.0); MCV 93.8 fL (80.0-100.0); MEAN PLATELET VOLUME 10.2 fL (7.4-10.4); MONOCYTES 4.9 % (2-11); RBC 4.39 10x6/uL (4.20-6.10); RDW 13.9 % (11.5-14.5); WBC 3.9 10x3/uL (4.8-10.8)
[2018-09-15 14:13] LABS: PLATELET COUNT 81 10x3/uL (130-400)
[2018-09-15 14:20] LABS: APTT 25.5 SECONDS (22.8-39.4); INR 1.1 (0.85-1.17); PROTIME 13.7 SECONDS (11.6-15.0)
[2018-09-15 14:23] LABS: ALBUMIN 3.3 g/dL (3.4-5.0); ALKALINE PHOSPHATASE 55 U/L (46-116); ALT (SGPT) 17 U/L (10-68); BILIRUBIN - TOTAL 0.69 mg/dL (0.2-1.3); CALC OSMOLALITY 282 mosm/kg (275-300); CALCIUM 8.4 mg/dL (8.5-10.1); CARBON DIOXIDE 27.9 mmol/L (21.0-32.0); CHLORIDE - SERUM 105 mmol/L (98-107); CREATININE - SERUM 0.8 mg/dL (0.6-1.3); GLUCOSE 109 mg/dL (74-106); POTASSIUM - SERUM 4.2 mmol/L (3.5-5.1); PROTEIN - SERUM 6.3 g/dL (6.4-8.2); SODIUM 140 mmol/L (136-145); UREA NITROGEN 21 mg/dL (7-18); eGFR NON AFRICAN AMERICAN > 90 mL/min (90-120)
[2018-09-15 14:34] LABS: AMYLASE - SERUM 20 U/L (25-115); CREATINE KINASE 65 UL (21-232); LIPASE 60 U/L (73-393); MAGNESIUM - SERUM 2.2 mg/dL (1.8-2.4); TROPONIN-I 0.019 ng/mL (0.000-0.060)
[2018-09-15 15:34] LABS: PLATELET ESTIMATE DECREASED
[2018-09-15 17:31] LABS: CKMB 1.8 U/L (0.0-3.6); CREATINE KINASE 57 UL (21-232); TROPONIN-I 0.019 ng/mL (0.000-0.060)
[2018-09-15 18:00] VITALS: BP 124/60
[2018-09-15 19:09] LABS: APPEARANCE CLEAR (CLEAR); BILIRUBIN NEGATIVE (NEGATIVE); COLOR YELLOW (YELLOW); GLUCOSE NEGATIVE (NEGATIVE); KETONE NEGATIVE (NEGATIVE); NITRITE NEGATIVE (NEGATIVE); PROTEIN NEGATIVE (NEGATIVE); UROBILINOGEN NORMAL (NORMAL)
== END 2018-09-15 18:02 | disposition home or self-care (01) ==
LOC: D.ER 12:37
PROVIDERS: Family Medicine
DX: R55 Syncope and collapse (principal); R07.9 Chest pain, unspecified

== ENCOUNTER 2018-09-21 23:56 | Observation (INO) | payer MEDICARE ==
[~2018-09-21] VITALS: Ht 175.3 cm; Wt 98.0 kg
--- NOTE | ~2018-09-21 | HEMODYNAMI ---
PATIENT:ALMA SORIA JR MEDICAL RECORD: [id number] : 36 LOCATION[facility] [id number] ADMISSION DATE: 09/22/18 Generatedon:09/22/201810:40 Patient name: ALMA SORIA Patient #: [id number] SSN: D OB: 1940 Date of study: 09/22/2018 Page: Of Hemodynamic Procedure Report Patient Data Patient Demographics Procedure consent was obtained First Name: ALMA Gender: Male Last Name: YANG Suffix: [facility] Initial: JOHN : 1940 Patient #: [id number] Age: 77 year(s) Race: Unknown Additional ID: [id number] Contact details Address: [address] [place] [address] State: [place] City: [place] Zip code: [address] Past Medical History Allergies: No known allergies Admission Admission Data Admission Date: 09/22/2018 Admission Time: 1:19 [facility] Weight (lbs.): 216.45 Weight (kg.): 98.18 Lab Results Lab Result Date: 09/22/2018 Lab Result Time: 0:14 Biochemistry Name Units Result Min Max BUN mg/dl 21 --(----)-* 7 18 Creatinine mg/dl 0.9 --(-*--)-- 0.6 1.3 Troponin l ng/ml 0.109 --(----)-* 0 0.06 CBC Name Units Result Min Max Hematocrit % 40.9 -*(----)-- 42 54 Hemoglobin g/dl 13.9 --(*---)-- 13.5 17.5 Procedure Procedure Types Cath Procedure Diagnostic Procedure LHC Coronaries only Aortic Root Angiography Sedation Charges Moderate Sedation up to 15 minutes PCI Procedure PTCA PTCA Initial Procedure Description Procedure Date Procedure Date: 09/22/2018 Procedure Start Time: 10:09 Procedure End Time: 10:38 Procedure Staff Name Function Joaquin Bray MD Performing Physician Washington Luna RT Monitor Praful Alvarez RN Nurse Layne Boland RT Scrub Procedure Data Cath Procedure Fluoroscopy Diagnostic fluoroscopy Total fluoroscopy Time: 5.1 time: 5.1 min min Diagnostic fluoroscopy Total fluoroscopy dose: dose: 1136 mGy 1136 mGy Contrast Material Contrast Material Type Amount (ml) Isovue 300 122 Entry Location Entry Primary Successful Side Size Upsize Upsize Entry Closure Succes sful Closure Location (Fr) 1 (Fr) 2 (Fr) Remarks Device Remarks Femoral Right 5 Fr 6 Fr Exoseal artery Short Estimated blood loss: 10 ml Diagnostic catheters Device Type Used For End Catheter Placement MULTIPACK JL 4.0 5Fr Procedure catheter MULTIPACK 3DRC 5Fr Procedure catheter MULTIPACK Pigtail 5 Fr Procedure catheter Procedure Complications No complications Procedure Medications Medication Administration Route Dosage Oxygen etCO2 Nasal cannula 2 l/min Lidocaine 2% added to field 20 Heparin Flush Bag added to field 2 bags (1000units/500ml NS) 0.9% NaCl I.V. 100 ml/hr Versed I.V. 0.5 mg Fentanyl I.V. 25 mcg 0.9% NaCl I.V. bolus 500 ml Heparin Bolus I.V. 91616 units Plavix P.O. 75 mg Hemodynamics Rest Heart Rate: 58 (bpm) Snapshots Pre Cath Intra NCS Post Cath Vital Signs Time Heart Resp SPO2 etCO2 NIBP Rhythm Pain Sedation Rate (ipm) (%) (mmHg) (mmHg) Status Level (bpm) 9:39:59 60 23 97 0 107/39(79) NSR 0 (11) 10(A) , No pain 9:41:53 60 20 98 0 102/40(66) NSR 0 (11) 10(A) , No pain 9:46:07 57 22 95 19 91/44(68) SB 0 (11) 10(A) , No pain 9:50:19 58 19 96 7.6 87/36(62) SB 0 (11) 10(A) , No pain 9:54:27 57 19 96 0 92/44(64) SB 0 (11) 10(A) , No pain 9:58:39 56 16 94 15.9 94/39(67) SB 0 (11) 10(A) , No pain 10:02:51 56 17 96 29.6 87/41(60) SB 0 (11) 10(A) , No pain 10:07:01 55 17 95 28.1 96/42(66) SB 0 (11) 10(A) , No pain 10:11:13 55 18 95 28.8 110/41(68) SB 0 (11) 10(A) , No pain 10:15:31 58 18 99 33.4 105/39(60) SB 0 (11) 9(A) , No pain 10:19:47 56 18 99 34.1 95/41(68) SB 0 (11) 9(A) , No pain 10:23:59 57 18 99 34.9 109/34(59) SB 0 (11) 9(A) , No pain 10:28:09 98 19 99 34.1 79/34(59) NSR 0 (11) 10(A) , No pain 10:33:10 58 18 99 35.6 106/42(74) SB 0 (11) 10(A) , No pain 10:37:26 58 19 99 33.4 104/41(66) SB 0 (11) 10(A) , No pain Medications Time Medication Route Dose Verified Delivered Reason Note s Effectiveness by by 9:40:05 Oxygen etCO2 2 Joaquin Buffie used for Nasal l/min Bunny Alvarez RN procedure cannula 9:40:15 Lidocaine 2% added 20ml Joaquin Joaquin for local to vial Bunny Bray MD anesthetic field 9:40:23 Heparin Flush added 2 bags Joaquni Joaquin used for Bag to Bunny Bray MD procedure (1000units/500ml field NS) 9:41:20 0.9% NaCl I.V. 500 ml Joaquin Buffie Per physician bolus Bunny Alvarez RN 10:10:00 Versed I.V. 0.5 mg Joaquin Buffie for sedation Bunny Alvarez RN 10:10:07 Fentanyl I.V. 25 mcg Joaquin Buffie for sedation Bunny Alvarez RN 10:10:33 0.9% NaCl I.V. 100 Joaquin Buffie Per physician ml/hr Bunny Alvarez RN 10:24:25 Heparin Bolus I.V. 10,000 Joaquin Buffie for veri fied units Bunny Alvarez RN anticoagulation with dr bray 10:35:40 Plavix P.O. 75 mg Joaquin Buffie for Bray MD Alvarez RN antiplatelet therapy Procedure Log Time Note 9:15:53 Layne Boland RT(R) sent for patient. Start room use. 9::49 Lab Result : BUN 21 mg/dl 9::49 Lab Result : Hemoglobin 13.9 g/dl 9::49 Lab Result : Creatinine 0.9 mg/dl 9::49 Lab Result : Troponin l 0.109 ng/ml 9::49 Lab Result : Hematocrit 40.9 % 9::52 Lab results completed and on chart. 9:26:58 Patient Weight : 216.45 lbs 9:27:22 H&P Date Dictated: 09/22/2018 Within 30 days and on chart.. 9:36:01 Time tracking: Regular hours (M-F 7:00 - 5:00) 9:36:04 Plan of Care:Hemodynamics will remain stable., Cardiac rhythm will remain stable., Comfort level will be maintained., Respiratory function will remain adequate., Patient/ family verbilizes understanding of procedure., Procedure tolerated without complication., Recovers from procedure without complications.. 9:36:09 Patient received from PCU to CCL 2 Alert and oriented. Tansferred to table in Supine position. 9:36:10 Warm blankets applied, and stef hugger turned on for patient comfort. 9:36:10 Correct patient and procedure confirmed by team. 9:36:12 Signed procedure consent form obtained from patient. 9:36:13 ECG and BP/O2 sat monitors applied to patient. 9:36:13 Full Disclosure recording started 9:38:46 Vital chart was started 9:40:05 Oxygen 2 l/min etCO2 Nasal cannula was administered by Praful Alvarez RN; used for procedure; 9:40:15 Lidocaine 2% 20ml vial added to field was administered by Joaquin Bray MD; for local anesthetic; 9:40:23 Heparin Flush Bag (1000units/500ml NS) 2 bags added to field was administered by Joaquin Bray MD; used for procedure; 9:40:46 Rhythm: sinus rhythm 9:40:51 Pre-procedure instructions explained to patient. 9:40:52 Pre-op teaching completed and patient verbalized understanding. 9:40:53 Family in patients room. 9:40:54 Patient NPO since Midnight. 9:40:59 Patient allergic to No known allergies 9:41:00 Is the patient allergic to Iodine/contrast media? No. 9:41:01 Is patient on blood thinner?Yes 9:41:04 ACC The patient was administered the following blood thiners within the last 24 hours: ACCPlavix 9:41:06 Patient diabetic? No. 9:41:08 Previous problem with sedation/anesthesia? No ? 9:41:10 Snore? Yes 9:41:10 Sleep apnea? No 9:41:11 Deviated septum? No 9:41:12 Opens mouth fully? Yes 9:41:12 Sticks out tongue? Yes 9:41:14 Airway obstruction? No ? 9:41:18 Dentures? Yes in tight 9:41:20 0.9% NaCl 500 ml I.V. bolus was administered by Praful Alvarez RN; Per physician; 9:41:20 Pre procedure: right dorsailis pedis pulse 2+ Normal; easily identifiable; not easily obliterated 9:41:22 Patient pain scale 0/10 ?. 9:41:26 IV patent on arrival in left forearm with 0.9% NaCl at O. 9:41:29 Right groin area was prepped with chlora-prep and draped in sterile fashion 9:41:30 Alarms reviewed by R. N. 9:41:30 Sharps counted by scrub and verified by R.N. 9:41:32 Use device set Femoral Dx 9:41:33 ACIST Syringe (23468) opened to sterile field. 9:41:33 Bag Decanter (2002) opened to sterile field. 9:41:34 Medline Cath Pack ([id number]) opened to sterile field. 9:41:35 ACIST Hand Control (95351) opened to sterile field. 9:41:35 ACIST Manifold (08239) opened to sterile field. 9:41:36 Tegaderm 4 x 4 (1626W) opened to sterile field. 9:41:37 SHEATH 5FR Rothsay (GUJ934) opened to sterile field. 9:41:38 DIAGNOSTIC Multipack 5Fr catheter set (GB0012) opened to sterile field. 9:41:39 DIAGNOSTIC WIRE .035 260cm J wire (694059) opened to sterile field. 9:46:49 Baseline sample Acquired. 9:58:55 Zero performed for pressure channel P1 10:06:04 Physician arrived 10:06:05 --------ALL STOP TIME OUT------ 10:06:05 Final Timeout: patient, procedure, and site verified with staff and physician. All members of the team are in agreement. 10:06:07 Right groin site verified by team. 10:06:10 Maximum allowable Isovue 300 dose 300ml. Physician notified. (300ml for normal creatinines. For patients with creatinine of 1.7 or higher multiply weight(kg) x 5 divided by creatinine.) 10:06:13 Fire Safety Assessment: A--An alcohol-based skin anteseptic being used preoperatively., C--Open oxygen or nitrous oxide is being used., D--An ESU, laser, or fiber-optic light is being used. 10:06:16 Physical assessment completed. ASA score P 2 - A patient with mild systemic disease as per Joaquin Bray MD. 10:06:20 Sedation plan: IV Moderate Sedation Medication:Versed, Fentanyl 10:09:35 Procedure started. 10:09:38 Local anesthetic to right femoral artery with Lidocaine 2% by Joaquin Bray MD.INITIAL ACCESS ONLY 10:09:45 A 5 Fr sheath was inserted into the Right Femoral artery 10:10:00 Versed 0.5 mg I.V. was administered by Praful Alvarez RN; for sedation; 10:10:07 Fentanyl 25 mcg I.V. was administered by Praful Alvarez RN; for sedation; 10:10:33 0.9% NaCl 100 ml/hr I.V. was administered by Praful Alvarez RN; Per physician; 10:10:56 A MULTIPACK JL 4.0 5Fr catheter was advanced over the wire and used for Procedure. 10:12:20 LCA angiography performed. 10:14:25 Catheter exchanged over wire. 10:18:53 A MULTIPACK 3DRC 5Fr catheter was advanced over the wire and used for Procedure. 10:18:58 RCA angiography performed. 10:19:03 Catheter exchanged over wire. 10:19:08 A MULTIPACK Pigtail 5 Fr catheter was advanced over the wire and used for Procedure. 10:19:32 TUBING High Pressure Extension Tubing (Bunny) ([id number]) opened to sterile field. 10:19:37 SHEATH 6FR Rothsay (GON525) opened to sterile field. 10:19:49 BMW 300cm Hudson 2 J wire ([id number]) opened to sterile field. 10:19:50 INFLATOR Merit BasixCompak (RQ1781) opened to sterile field. 10:20:10 Aortic Root visualized 10:20:42 Catheter exchanged over wire. 10:23:04 Sheath upsized to a 6 Fr Short. 10:23:27 GUIDE 6FR XBLAD 3.5 catheter ([id number]) opened to sterile field. 10:23:35 6 Fr xblad 3.5 guide catheter was inserted over the wire 10:24:25 Heparin Bolus 10,000 units I.V. was administered by Praful Alvarez RN; for anticoagulation; verified with dr bray 10:25:06 bmw wire advanced. 10:25:07 Wire advanced across lesion. 10:27:47 Inflate balloon Inflation number: 1 A EUPHORA 2.0 x 12 Balloon ([id number]) was prepped and advanced across the 1st Diag, then inflated to 14 JUAN CARLOS for 0:10 (min:sec). 10:29:11 Inflation number: 2 The EUPHORA 2.0 x 12 Balloon ([id number]) was reinflated across the 1st Diag, to 16 JUAN CARLOS for 0:10 (min:sec). 10:31:05 Inflation number: 3 The EUPHORA 2.0 x 12 Balloon ([id number]) was reinflated across the 1st Diag, to 16 JUAN CARLOS for 0:10 (min:sec). 10:33:04 Balloon removed over the wire. 10:33:05 Wire removed. 10:33:12 Guide catheter removed. 10:33:18 EXOSEAL 6Fr (EX600) opened to sterile field. 10:33:28 Sheath removed intact; hemostasis achieved with Exoseal to the Right Femoral artery. 10:33:30 Procedure ended.(Physican Out) 10:34:05 Fluoroscopy time 05.10 minutes. 10:34:10 Flurop Dose total: 1136 10:34:10 Fluoroscopy dose: 1136 mGy 10:34:13 Contrast amount:Isovue 300 122ml. 10:35:40 Plavix 75 mg P.O. was administered by Praful Alvarez RN; for antiplatelet therapy; 10:35:59 Sharps counted by scrub and verified by R.N. 10:36:00 Insertion/operative site no bleeding no hematoma. 10:36:03 Post-op/insertion site Right Femoral artery dressed using a 4 x 4 and Tegaderm. 10:36:06 Post right femoral artery:stable, soft, clean and dry 10:36:07 Post Procedure Pulses reassessed and unchanged 10:36:10 Post-procedure physical assessment completed. ASA score P 2 - A patient with mild systemic disease as per Joaquin Bray MD. 10:36:11 Post procedure rhythm: unchanged. 10:36:26 Estimated blood loss: 10 ml 10:36:28 Post procedure instruction explained to patient.Patient verbalizes understanding. 10:36:29 Patient needs reinforcement of post procedure teaching. 10:37:27 Procedure type changed to Cath procedure, Diagnostic procedure, LHC, Coronaries only, Aortic Root Angiography, Sedation Charges, Moderate Sedation up to 15 minutes, PCI procedure, PTCA, PTCA Initial 10:38:44 Procedure and supply charges have been captured, reviewed, submitted and are correct. 10:38:47 Procedure Complication : No complications 10:38:49 Vital chart was stopped 10:38:49 See physician's report for complete and final results. 10:38:51 Report given to PCU. 10:38:53 Patient transfered to PCU with Stretcher. 10:38:55 Procedure ended. 10:38:55 Full Disclosure recording stopped 10:39:17 End room use (Document Last) Intervention Summary Intervention Notes Time ActionType Lesion and Equipment Action# Pressure Duration Attributes Used 10:27:47 Inflate 1st Diag EUPHORA 1 14 00:10 balloon 2.0 x 12 Balloon ([id number]) 10:29:11 Reinflate 1st Diag EUPHORA 2 16 00:10 balloon 2.0 x 12 Balloon ([id number]) 10:31:05 Reinflate 1st Diag EUPHORA 3 16 00:10 balloon 2.0 x 12 Balloon ([id number]) Device Usage Item Name Manufacture Quantity Catalog Hospital Part Current Minimal L ot# / Number Charge Number Stock Stock Serial# Code ACIST Acist 1 20649 275412 114612 504096 20 ThemBid (29047) O3b Networks Inc Bag Microtek 1 525431 61625 702458 5 Decanter Medical Inc. (2001S) Medline Medline 1 [id number] 274297 79952 279195 5 Cath Pack ([id number]) ACIST Hand Acist 1 98795 445547 742685 340449 5 Control Medical (29262) Systems Inc ACIST Acist 1 76024 033938 051504 669531 5 Manifold Medical (87575) Systems Inc Tegaderm 4 3M 1 1626W 886587 992069 162467 5 x 4 (1626W) SHEATH 5FR Terumo 1 IDZ852 327788 187752 152724 5 Rothsay (OKK516) DIAGNOSTIC Cardinal 1 UM5900 536421 01701 916768 30 Multipack Health 5Fr catheter set (DU2589) DIAGNOSTIC St Thee 1 218812 932524 312165 538408 30 WIRE .035 260cm J wire (516953) MULTIPACK Cardinal 1 258736 5 JL 4.0 5Fr Health catheter MULTIPACK Cardinal 1 803803 5 3DRC 5Fr Health catheter MULTIPACK Cardinal 1 854615 5 Pigtail 5 Health Fr catheter TUBING High Merit 1 AU8445U 520937 86931 815178 10 Pressure Medical Extension Tubing (Bray) (NH6156S) SHEATH 6FR Terumo 1 ODJ644 614837 342176 078853 40 Rothsay (NJG516) BMW 300cm Dorado 1 1100137K 873320 632443 499406 5 Hudson 2 Vascular J wire (3228519P) INFLATOR Merit 1 YQ1641 005746 091427 365291 15 [facility] Medical BasixCompak (AK6359) GUIDE 6FR Cardinal 1 88424428 996118 180581 075606 10 XBLAD 3.5 Health catheter (48062057) EUPHORA 2.0 Medtronic 1 [id number] 654466 059314 184714 5 2 40973607 x 12 Balloon ([id number]) EXOSEAL 6Fr Cardinal 1 EX600 364886 018547 467412 10 (EX600) Health Signature Audit [place] Stage Time Signature Unsigned Intra-Procedure 09/22/2018 Washington Luna 10:40:29 AM RT(R) Signatures Monitor : Washington Luna RT Signature : Date : Time : [address] [place] [address]
[2018-09-22] VITALS (7 sets, daily range): BP systolic 100–185; BP diastolic 45–81; Ht 175.3 cm; Wt 98.0 kg
[2018-09-22] MEDS ORDERED: ANTIVERT12.5 MG PO (00:02)
[2018-09-22 00:21] LABS: BASOPHILS 0.2 % (0-2); EOSINOPHILS 2.9 % (0-7); HEMATOCRIT 40.9 % (42.0-54.0); HEMOGLOBIN 13.9 g/dL (13.5-17.5); IMMATURE GRANULOCYTES 0.2 % (0-5); LYMPHOCYTES 36.6 % (15-50); MCH 31.9 pg (26.0-34.0); MCV 93.8 fL (80.0-100.0); MEAN PLATELET VOLUME 9.6 fL (7.4-10.4); MONOCYTES 5.2 % (2-11); NEUTROPHILS 54.9 % (40-80); RBC 4.36 10x6/uL (4.20-6.10); RDW 13.9 % (11.5-14.5); WBC 4.2 10x3/uL (4.8-10.8)
[2018-09-22 00:22] LABS: PLATELET COUNT 106 10x3/uL (130-400)
[2018-09-22 00:28] LABS: APTT 27.9 SECONDS (22.8-39.4); INR 1.08 (0.85-1.17); PROTIME 13.5 SECONDS (11.6-15.0)
[2018-09-22 00:35] LABS: ALBUMIN 3.4 g/dL (3.4-5.0); ALKALINE PHOSPHATASE 59 U/L (46-116); ALT (SGPT) 28 U/L (10-68); BILIRUBIN - TOTAL 0.36 mg/dL (0.2-1.3); CALC OSMOLALITY 288 mosm/kg (275-300); CALCIUM 8.5 mg/dL (8.5-10.1); CARBON DIOXIDE 29.8 mmol/L (21.0-32.0); CHLORIDE - SERUM 106 mmol/L (98-107); CREATININE - SERUM 0.9 mg/dL (0.6-1.3); GLUCOSE 111 mg/dL (74-106); POTASSIUM - SERUM 3.7 mmol/L (3.5-5.1); PROTEIN - SERUM 6.8 g/dL (6.4-8.2); SODIUM 143 mmol/L (136-145); UREA NITROGEN 21 mg/dL (7-18); eGFR NON AFRICAN AMERICAN 86 mL/min (90-120)
--- NOTE | 2018-09-22 00:40 | NUR ---
PT RESTING ON BED, FAMILY AT BEDSIDE.
[2018-09-22 00:48] LABS: CKMB 2.1 U/L (0.0-3.6); CREATINE KINASE 74 UL (21-232); MAGNESIUM - SERUM 1.9 mg/dL (1.8-2.4); PRO BNP 1235 pg/mL (0-450); TROPONIN-I 0.029 ng/mL (0.000-0.060)
--- NOTE | 2018-09-22 01:20 | NUR ---
PT CONTINUES TO DENY CP AT THIS TIME. NO S/S OF ACUTE DISTRESS NOTED.
--- NOTE | 2018-09-22 03:01 | NUR ---
RECIEVED REPORT FROM ER. ARRIVED TO FLOOR IN W/C. TRANSFERED SELF TO BED. ASSESSMENT COMPLETED. ALERT AND ORIENTED X4. IV TO LEFT FA SL. DENIES ANY PAIN.
--- NOTE | 2018-09-22 08:00 | NUR ---
ALERT AND ORIENTED.DENIES ANY PAIN. TELEMERTY SHOWS SR. LEFT FA SL, PATENT. UP AB MIMA. CALL LIGHT IN REACH WITH SR UP
[2018-09-22 08:05] LABS: BASOPHILS 0.3 % (0-2); EOSINOPHILS 2.6 % (0-7); HEMATOCRIT 37.7 % (42.0-54.0); HEMOGLOBIN 12.7 g/dL (13.5-17.5); IMMATURE GRANULOCYTES 0.3 % (0-5); LYMPHOCYTES 41.5 % (15-50); MCH 31.7 pg (26.0-34.0); MCHC 33.7 g/dL (31.0-37.0); MONOCYTES 9.5 % (2-11); NEUTROPHILS 45.8 % (40-80); PLATELET COUNT 99 10x3/uL (130-400); RBC 4.01 10x6/uL (4.20-6.10); RDW 13.9 % (11.5-14.5); WBC 3.8 10x3/uL (4.8-10.8)
[2018-09-22 08:13] LABS: CALC OSMOLALITY 291 mosm/kg (275-300); CALCIUM 8.4 mg/dL (8.5-10.1); CARBON DIOXIDE 29.2 mmol/L (21.0-32.0); CHLORIDE - SERUM 109 mmol/L (98-107); CREATININE - SERUM 0.8 mg/dL (0.6-1.3); GLUCOSE 107 mg/dL (74-106); POTASSIUM - SERUM 4.1 mmol/L (3.5-5.1); SODIUM 145 mmol/L (136-145); UREA NITROGEN 20 mg/dL (7-18); eGFR NON AFRICAN AMERICAN > 90 mL/min (90-120)
--- NOTE | 2018-09-22 09:14 | NUR ---
PRE OP FOR WATERSHED ENGINEER AND TRANSPORTED BY BED
--- NOTE | 2018-09-22 14:45 | NUR ---
RIGHT GROIN SOFT WITH DRSG CLEAN AND DRY. PPP. TELEMERTY SHOWS SR. WILL MONITOR
--- NOTE | 2018-09-22 16:58 | MORECARE ---
CASE MANAGEMENT DISCHARGE SUMMARY PATIENT: ALMA SORIA JR UNIT: [id number] ADM DATE: 09/22/18 AGE: 77 : 38 SEX: M ROOM/BED: D.2124 AUTHOR: IAIN BANERJEE PHYSICIAN: REFERRING PHYSICIAN: JAYCOB BRIDGES MD DATE OF SERVICE: 09/22/18 Discharge Plan Patient Name: ALMA SORIA Facility: [facility]:[place] : 1940 Planned Disposition: Home Anticipated Discharge Date: 09/22/18 Discharge Date: Expected LOS: 1 Initial Reviewer: [email or web address] Initial Review Date: 09/22/2018 Generated: 09/22/18 5:58 pm Patient Name: ALMA SORIA Page 68954 at 1658 All edits/amendments must be made on the electronic document DICTATION DATE: 09/22/181656 CLINIC OFFICE MANAGER: STEPHANIE 09/22/181656 RPT#: [id number] DC DATE: STATUS: ADM IN [facility] [address] [place] [address] END OF REPORT
--- NOTE | 2018-09-22 17:55 | NUR ---
PT DISCHARGED.IV DCD WITH TIP INTACT.DISCHARGE INSTRUUCTIONS GIVEN. TO PRIVATE CAR PER WHEELCHAIR
--- NOTE | 2018-09-23 11:04 | MORECARE ---
CASE MANAGEMENT DISCHARGE SUMMARY PATIENT: ALMA SORIA JR UNIT: [id number] ADM DATE: 09/22/18 AGE: 78 : 38 SEX: M ROOM/BED: D.8044 AUTHOR: IAIN BANERJEE PHYSICIAN: REFERRING PHYSICIAN: JAYCOB BRIDGES MD DATE OF SERVICE: 09/23/18 Discharge Plan Patient Name: ALMA SORIA Facility: [facility]:[place] : 1940 Planned Disposition: Home Anticipated Discharge Date: 09/22/18 Discharge Date: 09/22/2018 Expected LOS: 1 Initial Reviewer: [email or web address] Initial Review Date: 09/22/2018 Generated: 09/23/18 12:04 pm Last DP export: 09/22/18 3:58 p Patient Name: ALMA SORIA Page 45057 at 1104 All edits/amendments must be made on the electronic document DICTATION DATE: 09/23/18 1104 TINSMITH APPRENTICE: STEPHANIE 09/23/18 1104 RPT#: [id number] DC DATE:09/22/18 STATUS: DIS IN [facility] [address] [place] [address] END OF REPORT
== END 2018-09-22 18:05 | disposition home or self-care (01) ==
LOC: D.ER 23:56 → OBSVTIME 09-22 01:19 → D.EDHOLD 09-22 01:19 → D.M2 09-22 01:19
PROVIDERS: Family Medicine; Internal Medicine Cardiovascular Disease; ADMIT Internal Medicine Nephrology; ATTEND Internal Medicine Nephrology
DX: I24.9 Acute ischemic heart disease, unspecified (principal); I25.110 Atherosclerotic heart disease of native coronary artery with unstable angina pectoris; I11.0 Hypertensive heart disease with heart failure; I50.9 Heart failure, unspecified; K21.9 Gastro-esophageal reflux disease without esophagitis; I42.9 Cardiomyopathy, unspecified; I35.0 Nonrheumatic aortic (valve) stenosis

== ENCOUNTER 2018-11-25 11:46 | Emergency (ER) | payer MEDICARE ==
[~2018-11-25] VITALS: Ht 175.3 cm; Wt 100.0 kg
[~2018-11-25 11:46] MED LIST changes: +ANTIVERT12.5 MG PO
[2018-11-25 11:48] VITALS: Ht 175.3 cm; Wt 100.0 kg
[2018-11-25] MEDS ORDERED: MUPIROCIN22 GM TOPICAL (14:16)
[2018-11-25 14:47] VITALS: BP 140/60
== END 2018-11-25 14:47 | disposition home or self-care (01) ==
LOC: D.ER 11:46
DX: S01.111A Laceration without foreign body of right eyelid and periocular area, initial encounter (principal); W18.30XA Fall on same level, unspecified, initial encounter; Y93.89 Activity, other specified; Y92.89 Other specified places as the place of occurrence of the external cause; S89.91XA Unspecified injury of right lower leg, initial encounter

== ENCOUNTER 2019-01-06 05:51 | Observation (INO) | payer MEDICARE ==
[~2019-01-06] VITALS: Ht 175.3 cm; Wt 99.8 kg
[~2019-01-06 05:51] MED LIST changes: +MUPIROCIN22 GM TOPICAL
[2019-01-06 06:30] VITALS: BP 116/47
[2019-01-06 06:33] LABS: BASOPHILS 0.2 % (0-2); EOSINOPHILS 3.3 % (0-7); HEMATOCRIT 37.7 % (42.0-54.0); HEMOGLOBIN 12.6 g/dL (13.5-17.5); IMMATURE GRANULOCYTES 0.2 % (0-5); LYMPHOCYTES 27.1 % (15-50); MCH 31.2 pg (26.0-34.0); MCHC 33.4 g/dL (31.0-37.0); MCV 93.3 fL (80.0-100.0); MEAN PLATELET VOLUME 9.7 fL (7.4-10.4); MONOCYTES 8.3 % (2-11); NEUTROPHILS 60.9 % (40-80); PLATELET COUNT 101 10x3/uL (130-400); RBC 4.04 10x6/uL (4.20-6.10); RDW 14.2 % (11.5-14.5); WBC 4.8 10x3/uL (4.8-10.8)
--- NOTE | 2019-01-06 06:40 | NUR ---
PT PROVIDED WARM BLANKET PER REQUEST. PT FAMILY AT BEDSIDE. NO S/S OF ACUTE DISTRESS NOTED.
[2019-01-06 06:43] LABS: ALBUMIN 3.6 g/dL (3.4-5.0); ALKALINE PHOSPHATASE 58 U/L (46-116); ALT (SGPT) 23 U/L (10-68); BILIRUBIN - TOTAL 0.43 mg/dL (0.2-1.3); CALC OSMOLALITY 289 mosm/kg (275-300); CARBON DIOXIDE 31.6 mmol/L (21.0-32.0); CHLORIDE - SERUM 107 mmol/L (98-107); GLUCOSE 114 mg/dL (74-106); POTASSIUM - SERUM 3.5 mmol/L (3.5-5.1); PROTEIN - SERUM 6.7 g/dL (6.4-8.2); SODIUM 144 mmol/L (136-145); UREA NITROGEN 19 mg/dL (7-18); eGFR NON AFRICAN AMERICAN 76 mL/min (90-120)
[2019-01-06 06:56] LABS: CKMB 2.3 U/L (0.0-3.6); CREATINE KINASE 85 UL (21-232); LIPASE 85 U/L (73-393); MAGNESIUM - SERUM 2.1 mg/dL (1.8-2.4); PRO BNP 2505 pg/mL (0-450); TROPONIN-I 0.022 ng/mL (0.000-0.060)
--- NOTE | 2019-01-06 08:04 | NUR ---
DR. BRIDGES NOTIFIED OF HIGH D-DIMER 8.62, VERBAL ORDER RECEIVED FOR 1MG PER KG LOVENOX SUB-Q AND CTA CHEST. DR. MARTINEZ INFECTIOUS DISEASES PHYSICIAN AT BEDSIDE, VERBAL ORDERS CONFIRMED.
--- NOTE | 2019-01-06 08:10 | NUR ---
DR. ROLDAN CONTACTED ABOUT CONSULT PER DR. JUAN ROMERO
[2019-01-06 08:22] LABS: APPEARANCE CLEAR (CLEAR); BACTERIA FEW /hpf (NONE SEEN); BILIRUBIN NEGATIVE (NEGATIVE); COLOR STRAW (YELLOW); EPITHELIAL CELLS 0-5 /hpf (0-5); GLUCOSE NEGATIVE (NEGATIVE); KETONE NEGATIVE (NEGATIVE); NITRITE NEGATIVE (NEGATIVE); PROTEIN NEGATIVE (NEGATIVE); RED CELLS - URINE OCC /hpf (0-5); UROBILINOGEN NORMAL (NORMAL); WHITE CELLS - URINE OCC /hpf (0-5)
[2019-01-06 09:31] LABS: % SATURATION 15 % (15-55); APTT 25.7 SECONDS (22.8-39.4); INR 1.06 (0.85-1.17); IRON 52 ug/dl (35-150); PROTIME 13.3 SECONDS (11.6-15.0); TOTAL IRON BIND CAPACITY 330 ug/dl (260-445); UNSAT IRON BIND CAPACITY 278 ug/dl (150-375)
[2019-01-06 12:50] VITALS: BP 110/62; BP 126/62
[2019-01-06 15:56] VITALS: BP 120/62; BMI 32.5
[2019-01-06 16:41] VITALS: BP 120/63
[2019-01-06 20:24] VITALS: BP 115/57
[2019-01-07 00:36] VITALS: BP 112/56
[2019-01-07 04:45] VITALS: BP 120/54
[2019-01-07 05:29] LABS: ALBUMIN 2.9 g/dL (3.4-5.0); ALKALINE PHOSPHATASE 47 U/L (46-116); ALT (SGPT) 19 U/L (10-68); BILIRUBIN - TOTAL 0.41 mg/dL (0.2-1.3); CALC OSMOLALITY 280 mosm/kg (275-300); CALCIUM 8.4 mg/dL (8.5-10.1); CARBON DIOXIDE 27.3 mmol/L (21.0-32.0); CHLORIDE - SERUM 109 mmol/L (98-107); CKMB 1.6 U/L (0.0-3.6); CREATINE KINASE 59 UL (21-232); CREATININE - SERUM 0.9 mg/dL (0.6-1.3); GLUCOSE 96 mg/dL (74-106); POTASSIUM - SERUM 3.3 mmol/L (3.5-5.1); PROTEIN - SERUM 5.6 g/dL (6.4-8.2); SODIUM 139 mmol/L (136-145); TROPONIN-I < 0.017 ng/mL (0.000-0.060); UREA NITROGEN 20 mg/dL (7-18); eGFR NON AFRICAN AMERICAN 86 mL/min (90-120)
[2019-01-07 05:40] LABS: BASOPHILS 0.3 % (0-2); EOSINOPHILS 3.5 % (0-7); HEMATOCRIT 33.8 % (42.0-54.0); HEMOGLOBIN 11.3 g/dL (13.5-17.5); IMMATURE GRANULOCYTES 0.3 % (0-5); LYMPHOCYTES 32.9 % (15-50); MCH 30.9 pg (26.0-34.0); MCHC 33.4 g/dL (31.0-37.0); MCV 92.3 fL (80.0-100.0); MEAN PLATELET VOLUME 9.9 fL (7.4-10.4); MONOCYTES 9.8 % (2-11); NEUTROPHILS 53.2 % (40-80); PLATELET COUNT 93 10x3/uL (130-400); RBC 3.66 10x6/uL (4.20-6.10); RDW 14.2 % (11.5-14.5); WBC 3.5 10x3/uL (4.8-10.8)
[2019-01-07 07:49] LABS: PLATELET ESTIMATE DECREASED
[2019-01-07 08:50] VITALS: BP 131/65
--- NOTE | 2019-01-07 10:29 | NUR ---
MORNING ASSESSMENT COMPLETE. SEE ASSESSMENT FLOWSHEET FOR FURHTER DETIALS. PT LYING IN BED AAO X4 TO PERSON, PLACE, TIME, AND SITUATUION. DENIES NEEDS AT THIS ITME. CL IN REACH. SIDE RAILS UP X3 FOR PT SFATEY. BED IN LOWEST POSITON.
[2019-01-07 12:53] VITALS: BP 101/68
[2019-01-07 13:15] VITALS: Ht 175.3 cm; Wt 99.8 kg
[2019-01-07] MEDS ORDERED: ZPAK PO (17:36)
[2019-01-07 17:43] VITALS: BP 133/65
--- NOTE | 2019-01-07 18:17 | NUR ---
PT D/C HOME VIA W/C. WENT OVER ALL D/C INSTRUCTIONS. PT STATES UNDERSTANDING. LEFT WITH ALL PERSONAL BELONGINGS
--- NOTE | 2019-01-19 18:38 | CN ---
PATIENT NAME:ALMA PRESCOTT JR MEDICAL RECORD: [id number] : 36 LOCATION:D[facility] [address] ADMIT DATE: 01/06/19 ACCOUNT: [id number] CONSULTING PHYSICIAN: ANGIE PARKS MD REFERRING PHYSICIAN: JAYCOB BRIDGES MD DATE OF CONSULTATION: 01/06/2019 CARDIOLOGY CONSULTATION DATE OF SERVICE: 01/06/2019 DIAGNOSES: 1. Near-syncope. 2. Hypotension. 3. Sick sinus syndrome. 4. Status post pacemaker. 5. Dilated ischemic cardiomyopathy. 6. Coronary artery disease. 7. Status post multivessel percutaneous transluminal coronary angioplasty stent. 8. Valvular heart disease, aortic insufficiency, mitral regurgitation. 9. History of hypertension. HISTORY OF PRESENT ILLNESS: Mr. Prescott is well known to us. He has a history of coronary artery disease. Last cardiac intervention was in August. He did not have any chest pain. He felt very weak like he was going to pass out, but did not pass out. His systolic blood pressure was in the 70s and 80s. He did not feel palpitations. This lasted for approximately 30 minutes today. He is now better. Systolic blood pressures greater than 100. He is on Coreg and Entresto for hypertension and for his cardiomyopathy. His pacemaker has not been interrogated for possible dysrhythmia. PHYSICAL EXAMINATION: GENERAL APPEARANCE: Well-nourished, well-developed, appears stated age. Level of distress, comfortable. PSYCHIATRIC: Mental status, alert, normal affect. Orientation, oriented to time, place and person. EYES: Lids and conjunctiva, noninjected. No discharge, no pallor. ENT: Lips, teeth, gums, normal dentition. Oropharynx, no cyanosis, no pallor. NECK: Carotid arteries, bilateral normal upstroke, no bruits, no thrills. JUGULAR VEINS: No jugular venous pressure or distention. CERVICAL LYMPH NODES: Nontender, nonenlarged. THYROID: Not enlarged. Nontender. No nodules. LUNGS: Respiratory effort, unlabored. CHEST: Normal curvature. No thoracic deformity. No chest wall tenderness. Percussion, resonant. Auscultation, clear. No wheezes, no rales, no rhonchi. CARDIOVASCULAR: Precordial exam, nondisplaced. No heaves or pericardial thrills. Rate and rhythm, regular. Heart sounds, normal S1, normal S2. No S3, no gallop, no rub. Systolic murmur, not heard. Diastolic murmur, not heard. EXTREMITIES: No cyanosis, no edema. Peripheral pulses, full and equal in all extremities, except as noted. No bruits appreciated. ABDOMEN: Soft, nondistended. Normal aorta. No bruit. Nontender. No masses. Liver, nontender, no hepatomegaly. Spleen, nontender, no splenomegaly. MUSCULOSKELETAL: No joint tenderness. No joint swelling. No erythema. NEUROLOGICAL: Normal gait, normal strength, normal tone. CONSULT REPORT [id number] ALMA PRESCOTT JR SKIN: Warm and dry. OVERALL IMPRESSION: Hemodynamically stable now. He is not having any chest pain or chest discomfort compatible with angina. We will interrogate the pacemaker to see if he had an arrhythmia. If he did have significant arrhythmia, we would add Cordarone to his medical regimen. Further care depends upon the results with the pacemaker interrogation. TRANSINT:[id number] Voice Confirmation ID: [id number] DOCUMENT ID: [id number] ANGIE PARKS MD at 1838 CC: [id number] DICTATION DATE: 01/06/19 1022 RESIDENTIAL DIRECTOR: 01/06/19 1053 DIS IN 01/07/19 [place] [id number] [place] [address]
--- NOTE | 2019-01-19 18:38 | EC ---
PATIENT:ALMA SORIA JR DATE OF SERVICE: 01/06/19 SEX: M MEDICAL RECORD: [id number] DATE OF : 36 LOCATION:[id number] AGE OF PATIENT: 78 ADMISSION DATE: 01/06/19 REFERRING PHYSICIAN: INTERPRETING PHYSICIAN: ANGIE NEFF MD ECHOCARDIOGRAM REPORT ECHO CHARGES 4 ECHO COMPLETE Date: 01/06/19 CLINICAL DIAGNOSIS: CHF//NEAR SYNCOPE ECHOCARDIOGRAPHIC MEASUREMENTS (adult normal given) AC root (d.<3.7cm) 4.0 cm LV Septum d (<1.2 cm> 1.5 cm Valve Excursion 1.6 cm LV Septum (systole) 1.6 cm Left Atria (s.<4.0cm> 2.9 cm LVPW d(<1.2cm) 1.2 cm RV (d.<2.3cm) 2.6 cm LVPW (sytole) 1.6 cm LV diastole(<5.6CM) 6.7 cm MV E-F(>70mm/sec) cm LV systole 5.5 cm LVOT Diameter 2.1 cm MV exc.(>10mm) cm Est.ejection fraction (50-75%) % DOPPLER: LVIT cm/sec A 117 cm/sec E 78.0 cm/sec LA cm/sec RVSP 28.0 mmHg LVOT 85.0 cm/sec AOP1/2T m/s Asc. Ao 267 cm/sec RVOT 89.0 cm/sec RA cm/sec PA 113 cm/sec AV Gradient Peak 29.0 mmHg AV Mean 16.0 mmHg AV Area 0.9 cm MV Gradient Peak 6.0 mmHg MV Mean 2.5 mmHg MV Area cm COMMENTS: Inspector Toys: Dannie [employer] Specialist: 1 Dr. Neff TAPE# PACS Pericardial Effusion N DATE OF SERVICE: 01/06/2019 FINDINGS: 1. Left ventricular chamber size is dilated. Left ventricular systolic function is markedly reduced. Overall ejection fraction in the 20% range. 2. Left atrium is within normal limits. Right atrium and right ventricular chamber sizes are mildly dilated. 3. Valvular structures: Aortic valve demonstrates moderate calcific aortic stenosis. Valve area calculates to 0.9 cm-squared with gradient of 29 mm across the valve. The remaining valvular structures have normal structure and motion. ECHOCARDIOGRAM REPORT [id number] ALMA SORIA 4. Doppler interrogation elsewise reveals moderate aortic insufficiency and trace mitral regurgitation. No other valvular insufficiency or stenosis. Pulmonary systolic pressure is estimated at 28 mmHg. 5. No evidence of pericardial effusion or left ventricular thrombus. TRANSINT:[id number] Voice Confirmation ID: [id number] DOCUMENT ID: [id number] ANGIE NEFF MD at 1838 CC: [id number] DICTATION DATE: 01/06/19 1115 DIALYSIS EQUIPMENT TECHNICIAN: 01/06/19 1220 DIS IN 01/07/19 [facility] [address] [place] [address]
== END 2019-01-07 18:24 | disposition home or self-care (01) ==
LOC: D.ER 05:51 → D.MS 07:40 → D.ER 07:40 → OBSVTIME 07:40 → D.MS 07:40
PROVIDERS: Family Medicine; ADMIT Internal Medicine Nephrology; ATTEND Internal Medicine Nephrology
DX: R55 Syncope and collapse (principal); N17.9 Acute kidney failure, unspecified; I42.9 Cardiomyopathy, unspecified; I95.9 Hypotension, unspecified; D64.9 Anemia, unspecified; I10 Essential (primary) hypertension; E78.5 Hyperlipidemia, unspecified; D69.6 Thrombocytopenia, unspecified; K21.9 Gastro-esophageal reflux disease without esophagitis